=== PATIENT | female | born 1985 | race Caucasian/White ===

== ENCOUNTER 2017-09-04 07:04 | Emergency (ER) | payer OTHER ==
[~2017-09-04] VITALS: Ht 157.5 cm; Wt 52.2 kg
[2017-09-04] MEDS ORDERED: Prenatabs FA T1 EACH PO (07:42)
[2017-09-04 08:32] LABS: BASOPHILS ABSOLUTE AUTO 0.08 K/mm3 (0.00-0.23); BASOPHILS PERCENT AUTO 1 % (0-2); EOSINOPHILS ABSOLUTE AUTO 0.16 K/mm3 (0.00-0.68); EOSINOPHILS PERCENT AUTO 2 % (0-6); Hematocrit 39.3 % (33.0-51.0); Hemoglobin 13.5 g/dL (11.5-16.0); IMMATURE GRAN ABSOLUTE AUTO 0.01 K/mm3 (0.00-0.10); IMMATURE GRAN PERCENT AUTO 0 % (0-1); LYMPHOCYTES ABSOLUTE AUTO 1.71 K/mm3 (0.84-5.20); LYMPHOCYTES PERCENT AUTO 21 % (21-46); MONOCYTES PERCENT AUTO 5 % (4-13); Mean Corpuscular HGB 31.8 pg (26.0-34.0); Mean Corpuscular HGB Conc 34.4 g/dL (31.5-36.5); Mean Corpuscular Volume 93 fL (80-100); Mean Platelet Volume 8.6 fL (9.1-12.4); NEUTROPHILS ABSOLUTE AUTO 5.71 K/mm3 (1.96-9.15); NEUTROPHILS PERCENT AUTO 71 % (41-73); Platelet Count 296 K/mm3 (150-400); RDW Coefficient Variation 12.2 % (11.7-14.2); RDW Standard Deviation 41.7 fL (35.1-46.3); Red Blood Cell Count 4.25 M/mm3 (3.80-5.20); White Blood Cell Count 8.07 K/mm3 (4.00-11.30)
[2017-09-04 09:00] LABS: Alanine Aminotransfer (ALT/SGP 18 U/L (12-78); Albumin, Blood 4.4 g/dL (3.4-5.0); Albumin/Globulin Ratio 1.2 (0.8-1.8); Alk Phos 48 U/L (50-136); Anion Gap 4 mmol/L (6-16); Aspartate Aminotrans (AST/SGOT 15 U/L (12-37); Bilirubin, Total 0.7 mg/dL (0.1-1.0); Blood Urea Nitrogen 6 mg/dL (8-24); Bun/Creatinine Ratio 12.6 (12.0-20.0); CO2, Blood 25 mmol/L (21-32); Calcium, Blood 8.4 mg/dL (8.5-10.1); Chloride, Blood 107 mmol/L (98-108); Creatinine, Blood 0.48 mg/dL (0.40-1.00); Globulin, Blood 3.6 g/dL (2.2-4.0); Glomerular Filtration Rate >60 (60-); Glucose, Blood 92 mg/dL (70-99); Potassium, Blood 3.8 mmol/L (3.5-5.5); Sodium, Blood 136 mmol/L (136-145)
[2017-09-04] MEDS ORDERED: Zofran Odt4 MG SL (09:31)
== END 2017-09-04 09:44 | disposition home or self-care (01) ==
LOC: ER 07:04
PROVIDERS: Emergency Medicine
DX: O21.9 Vomiting of pregnancy, unspecified (principal); O99.331 Smoking (tobacco) complicating pregnancy, first trimester; F17.200 Nicotine dependence, unspecified, uncomplicated; Z91.040 Latex allergy status; Z79.899 Other long term (current) drug therapy; Z3A.01 Less than 8 weeks gestation of pregnancy
CPT/HCPCS: 80053; 84702; 85025; 86900; 86901; 96361; 96374; 99283; J2405; J7030

== ENCOUNTER 2017-09-05 03:54 | Emergency (ER) | payer OTHER ==
[~2017-09-05] VITALS: Ht 157.5 cm; Wt 52.2 kg
[~2017-09-05 03:54] MED LIST: Prenatabs FA T1 EACH PO; Zofran Odt4 MG SL
[2017-09-05 04:17] LABS: BASOPHILS ABSOLUTE AUTO 0.05 K/mm3 (0.00-0.23); BASOPHILS PERCENT AUTO 1 % (0-2); EOSINOPHILS ABSOLUTE AUTO 0.07 K/mm3 (0.00-0.68); EOSINOPHILS PERCENT AUTO 1 % (0-6); Hematocrit 35.1 % (33.0-51.0); Hemoglobin 11.8 g/dL (11.5-16.0); IMMATURE GRAN ABSOLUTE AUTO 0.01 K/mm3 (0.00-0.10); IMMATURE GRAN PERCENT AUTO 0 % (0-1); LYMPHOCYTES ABSOLUTE AUTO 1.28 K/mm3 (0.84-5.20); LYMPHOCYTES PERCENT AUTO 17 % (21-46); MONOCYTES ABSOLUTE AUTO 0.45 K/mm3 (0.16-1.47); MONOCYTES PERCENT AUTO 6 % (4-13); Mean Corpuscular HGB 31.3 pg (26.0-34.0); Mean Corpuscular HGB Conc 33.6 g/dL (31.5-36.5); Mean Corpuscular Volume 93 fL (80-100); Mean Platelet Volume 8.7 fL (9.1-12.4); NEUTROPHILS ABSOLUTE AUTO 5.73 K/mm3 (1.96-9.15); NEUTROPHILS PERCENT AUTO 76 % (41-73); Platelet Count 259 K/mm3 (150-400); RDW Coefficient Variation 11.9 % (11.7-14.2); RDW Standard Deviation 41.1 fL (35.1-46.3); Red Blood Cell Count 3.77 M/mm3 (3.80-5.20); White Blood Cell Count 7.59 K/mm3 (4.00-11.30)
[2017-09-05 04:40] LABS: Alanine Aminotransfer (ALT/SGP 16 U/L (12-78); Albumin, Blood 3.7 g/dL (3.4-5.0); Albumin/Globulin Ratio 1.2 (0.8-1.8); Alk Phos 38 U/L (50-136); Anion Gap 10 mmol/L (6-16); Aspartate Aminotrans (AST/SGOT 15 U/L (12-37); Bilirubin, Total 1.2 mg/dL (0.1-1.0); Blood Urea Nitrogen 5 mg/dL (8-24); Bun/Creatinine Ratio 10.4 (12.0-20.0); CO2, Blood 17 mmol/L (21-32); Calcium, Blood 7.6 mg/dL (8.5-10.1); Chloride, Blood 112 mmol/L (98-108); Creatinine, Blood 0.48 mg/dL (0.40-1.00); Glomerular Filtration Rate >60 (60-); Glucose, Blood 79 mg/dL (70-99); Potassium, Blood 3.7 mmol/L (3.5-5.5); Sodium, Blood 139 mmol/L (136-145); Total Protein, Blood 6.7 g/dL (6.4-8.2)
== END 2017-09-05 07:13 | disposition home or self-care (01) ==
LOC: ER 03:54
PROVIDERS: Emergency Medicine
DX: O21.9 Vomiting of pregnancy, unspecified (principal); Z91.040 Latex allergy status; Z79.899 Other long term (current) drug therapy; Z87.891 Personal history of nicotine dependence; Z3A.01 Less than 8 weeks gestation of pregnancy
CPT/HCPCS: 80053; 83690; 85025; 96361; 96372; 96374; 99283; J2405; J2550; J7030

== ENCOUNTER 2017-10-17 08:07 | Emergency (ER) | payer OTHER ==
[~2017-10-17] VITALS: Ht 157.5 cm; Wt 54.0 kg
== END 2017-10-17 09:23 | disposition home or self-care (01) ==
LOC: ER 08:07
DX: O99.611 Diseases of the digestive system complicating pregnancy, first trimester (principal); K31.89 Other diseases of stomach and duodenum; O21.9 Vomiting of pregnancy, unspecified; Z3A.14 14 weeks gestation of pregnancy; Z91.040 Latex allergy status; Z79.899 Other long term (current) drug therapy
CPT/HCPCS: 36415; 99283

== ENCOUNTER 2021-09-18 20:57 | Emergency (ER) | payer OTHER ==
[~2021-09-18] VITALS: Ht 157.5 cm; Wt 65.3 kg
[2021-09-18 21:49] LABS: Source, Urine Clean Catch
[2021-09-18 21:56] LABS: Bilirubin, Urine Neg (Neg); Blood, Urine 5+ (Neg); Glucose Qualitative, Urine Neg (Neg); Ketones, Urine Neg (Neg); Leukocyte Esterase, Urine 2+ (Neg); Nitrite, Urine Neg (Neg); Protein, Urine 2+ (Neg); Urobilinogen, Urine NORM (Normal)
[2021-09-18 22:06] LABS: Appearance, Urine Hazy (Clear); Color, Urine Yellow (P-Yellow)
[2021-09-18 22:08] LABS: Amorphous Light (0-Heavy); Bacteria Few /hpf; Mucus Light (0-Heavy); Red Blood Cells, Urine TNTC /hpf (0-2); Squamous Epithelial Cells Few /hpf (Few)
== END 2021-09-18 22:50 | disposition home or self-care (01) ==
LOC: ER 20:57
PROVIDERS: Physician Assistant
DX: O20.9 Hemorrhage in early pregnancy, unspecified (principal); Z91.040 Latex allergy status; Z3A.01 Less than 8 weeks gestation of pregnancy
CPT/HCPCS: 36415; 76801; 76817; 81001; 84702; 86900; 86901; 87086; 99284-25

== ENCOUNTER → 2022-04-20 | Outpatient (CLI) | payer OTHER ==
[2022-04-20 19:37] LABS: BASOPHILS ABSOLUTE AUTO 0.12 K/mm3 (0.00-0.23); BASOPHILS PERCENT AUTO 1 % (0-2); EOSINOPHILS ABSOLUTE AUTO 0.51 K/mm3 (0.00-0.68); EOSINOPHILS PERCENT AUTO 6 % (0-6); Hematocrit 39.1 % (33.0-51.0); Hemoglobin 12.7 g/dL (11.5-16.0); IMMATURE GRAN ABSOLUTE AUTO 0.02 K/mm3 (0.00-0.10); IMMATURE GRAN PERCENT AUTO 0 % (0-1); LYMPHOCYTES ABSOLUTE AUTO 2.52 K/mm3 (0.84-5.20); LYMPHOCYTES PERCENT AUTO 30 % (21-46); MONOCYTES PERCENT AUTO 8 % (4-13); Mean Corpuscular HGB 30.7 pg (26.0-34.0); Mean Corpuscular HGB Conc 32.5 g/dL (31.5-36.5); Mean Corpuscular Volume 94 fL (80-100); Mean Platelet Volume 9.3 fL (9.1-12.4); NEUTROPHILS ABSOLUTE AUTO 4.49 K/mm3 (1.96-9.15); NEUTROPHILS PERCENT AUTO 54 % (41-73); Platelet Count 339 K/mm3 (150-400); RDW Coefficient Variation 13.2 % (11.7-14.2); RDW Standard Deviation 45.5 fL (35.1-46.3); Red Blood Cell Count 4.14 M/mm3 (3.80-5.20); White Blood Cell Count 8.36 K/mm3 (4.00-11.30)
[2022-04-20 19:49] LABS: Albumin, Blood 4.3 g/dL (3.4-5.0); Albumin/Globulin Ratio 1.3 (0.8-1.8); Bilirubin, Total 0.4 mg/dL (0.1-1.0); Bun/Creatinine Ratio 16.9 (12.0-20.0); Calcium, Blood 8.8 mg/dL (8.5-10.1); Creatinine, Blood 0.71 mg/dL (0.40-1.00); Globulin, Blood 3.4 g/dL (2.2-4.0); Potassium, Blood 4.2 mmol/L (3.5-5.5); Total Protein, Blood 7.7 g/dL (6.4-8.2)
== END ==
LOC: LAB 11:35 → LAB SHORT 11:35
PROVIDERS: Physician Assistant
DX: R11.2 Nausea with vomiting, unspecified (principal)
CPT/HCPCS: 80053; 85025

== ENCOUNTER → 2022-04-26 | Outpatient (CLI) | payer OTHER | END | disposition home or self-care (01) | LOC: LAB SHORT 10:30 → LAB 10:30 | DX: N39.0 Urinary tract infection, site not specified (principal) | CPT/HCPCS: 87086 ==

== ENCOUNTER 2022-07-16 02:44 | Inpatient (IN) | payer OTHER ==
[~2022-07-16] VITALS: Ht 165.1 cm; Wt 72.1 kg
[2022-07-16] MEDS ORDERED: ESCI20 PO ×2 (02:52)
[2022-07-16] MEDS ORDERED: Budeprion Xl300 MG PO ×2 (02:52)
[2022-07-16] MEDS ORDERED: FAMO20 PO ×2 (02:53)
[2022-07-16] MEDS ORDERED: PRAZOSIN HCL1 M2 PO ×2 (02:53)
[2022-07-16 03:02] LABS: BASOPHILS ABSOLUTE AUTO 0.11 K/mm3 (0.00-0.23); BASOPHILS PERCENT AUTO 1 % (0-2); EOSINOPHILS ABSOLUTE AUTO 0.35 K/mm3 (0.00-0.68); EOSINOPHILS PERCENT AUTO 3 % (0-6); Hematocrit 37.3 % (33.0-51.0); Hemoglobin 13.1 g/dL (11.5-16.0); IMMATURE GRAN ABSOLUTE AUTO 0.06 K/mm3 (0.00-0.10); IMMATURE GRAN PERCENT AUTO 0 % (0-1); LYMPHOCYTES ABSOLUTE AUTO 2.82 K/mm3 (0.84-5.20); LYMPHOCYTES PERCENT AUTO 20 % (21-46); MONOCYTES ABSOLUTE AUTO 0.71 K/mm3 (0.16-1.47); MONOCYTES PERCENT AUTO 5 % (4-13); Mean Corpuscular HGB Conc 35.1 g/dL (31.5-36.5); Mean Corpuscular Volume 88 fL (80-100); Mean Platelet Volume 8.6 fL (9.1-12.4); NEUTROPHILS ABSOLUTE AUTO 9.96 K/mm3 (1.96-9.15); NEUTROPHILS PERCENT AUTO 71 % (41-73); Platelet Count 381 K/mm3 (150-400); RDW Coefficient Variation 12.4 % (11.7-14.2); RDW Standard Deviation 40.3 fL (35.1-46.3); Red Blood Cell Count 4.22 M/mm3 (3.80-5.20); White Blood Cell Count 14.01 K/mm3 (4.00-11.30)
[2022-07-16 03:36] LABS: Albumin/Globulin Ratio 1.1 (0.8-1.8); Bilirubin, Direct 0.1 mg/dL (0.0-0.3); Bilirubin, Indirect 0.5 mg/dL (0.1-0.7); Bilirubin, Total 0.6 mg/dL (0.1-1.0); Bun/Creatinine Ratio 11.4 (12.0-20.0); Creatinine, Blood 0.61 mg/dL (0.40-1.00); Globulin, Blood 3.8 g/dL (2.2-4.0); Magnesium, Blood 1.9 mg/dL (1.6-2.4); Potassium, Blood 3.3 mmol/L (3.5-5.5); Total Protein, Blood 7.8 g/dL (6.4-8.2)
[2022-07-16 04:07] LABS: Source, Urine Clean Catch
[2022-07-16 04:09] LABS: Bilirubin, Urine Neg (Neg); Blood, Urine 1+ (Neg); Glucose Qualitative, Urine 3+ (Neg); Ketones, Urine 4+ (Neg); Leukocyte Esterase, Urine 2+ (Neg); Nitrite, Urine Neg (Neg); Protein, Urine 1+ (Neg); Specific Gravity, Urine 1.015 (1.003-1.022); Urobilinogen, Urine NORM (Normal)
[2022-07-16 04:23] LABS: Appearance, Urine Hazy (Clear); Color, Urine Yellow (P-Yellow)
[2022-07-16 04:24] LABS: Bacteria Mod /hpf; Red Blood Cells, Urine 0-2 /hpf (0-2); Squamous Epithelial Cells Mod /hpf (Few)
[2022-07-16 04:25] LABS: U Amphetamine Screen Not Detected; U Barbituate Screen Not Detected; U Benzodiazapine Screen Not Detected; U Buprenorphine Screen Not Detected; U Cannabinoids Screen DETECTED; U Cocaine Screen Not Detected; U Methadone Screen Not Detected; U Methamphetamine Screen Not Detected; U Opiates Screen Not Detected; U Oxycodone Screen Not Detected; U Phencyclidine Screen Not Detected; U Propoxyphene Screen Not Detected
[2022-07-16] MEDS ORDERED: METO10 PO ×2 (06:04)
[2022-07-16] MEDS ORDERED: PROM12.5S PR ×2 (06:04)
--- NOTE | 2022-07-16 14:58 | NUR ---
C/O Nausea/Vomiting and abd pain Spoke with Dr. Foster. T.O. for 8mg zofran IV q8h PRN (use first), 25mg phenergan IV q6h PRN (use second), and 10mg reglan IV q8h PRN (use last). Additional orders are 25mg benadryl IV q6h PRN, 100mg thiamine IV TID, 25mg B6 PO q8h, and 100mg unisom PO BID. Unisom not available from pharmacy and neither is a conversion for this medication. Dr. Foster notified, no new order.
--- NOTE | 2022-07-16 18:47 | NUR ---
ADMIT FROM ED- PT ARRIVED FROM ED ON GURNEY ALERT AND ORIENTEDX4. PT IS EXPERIENCING NAUSEA AND VOMITING AND UNABLE TO KEEP ANY FLUIDS DOWN. ANTIEMETICS ADMINISTED PER MD ORDER. PT ANXIETY AND NAUSEA SEEMS TO BE RELIEVED BY TAKING A SHOWER. PT UP WITH NURSE SUPERVISION AND IS AWARE OF LIMITATIONS. BED IS IN LOWEST POSITION WITH CALL LIGHT WITHIN REACH
--- NOTE | 2022-07-17 04:43 | NUR ---
SHIFT NOTE PATIENT REMAINES ALERT AND ORIENTED X4, ANXIOSE AND SOMEWHAT UNCOOPERATIVE WITH CARE. NEEDS FIRM REMINDERS TO KEEP IV FLUIDS GOING AND TO TAKE MINIMAL SHOWERS THE PROVIDER HAS RECOMENDED. PRN ANTIEMETICS ADMINISTERED THROUGHOUT THE NIGHT, IV D5 1/2 NS INFUSING. N/V PERSISTING FOR MOST OF THE NIGHT. IV DISLODGED FROM MOISTURE AND REPLACED BY UNIT CHARGE. VSS. WILL CONT TO MONITOR.
[2022-07-17 04:48] LABS: BASOPHILS ABSOLUTE AUTO 0.03 K/mm3 (0.00-0.23); BASOPHILS PERCENT AUTO 0 % (0-2); EOSINOPHILS ABSOLUTE AUTO 0.01 K/mm3 (0.00-0.68); EOSINOPHILS PERCENT AUTO 0 % (0-6); Hematocrit 35.2 % (33.0-51.0); Hemoglobin 12.2 g/dL (11.5-16.0); IMMATURE GRAN ABSOLUTE AUTO 0.06 K/mm3 (0.00-0.10); IMMATURE GRAN PERCENT AUTO 0 % (0-1); LYMPHOCYTES ABSOLUTE AUTO 1.74 K/mm3 (0.84-5.20); LYMPHOCYTES PERCENT AUTO 11 % (21-46); MONOCYTES ABSOLUTE AUTO 1.24 K/mm3 (0.16-1.47); MONOCYTES PERCENT AUTO 8 % (4-13); Mean Corpuscular HGB 31.1 pg (26.0-34.0); Mean Corpuscular HGB Conc 34.7 g/dL (31.5-36.5); Mean Corpuscular Volume 90 fL (80-100); Mean Platelet Volume 8.8 fL (9.1-12.4); NEUTROPHILS ABSOLUTE AUTO 12.83 K/mm3 (1.96-9.15); NEUTROPHILS PERCENT AUTO 81 % (41-73); Platelet Count 356 K/mm3 (150-400); RDW Coefficient Variation 12.8 % (11.7-14.2); RDW Standard Deviation 41.5 fL (35.1-46.3); Red Blood Cell Count 3.92 M/mm3 (3.80-5.20); White Blood Cell Count 15.91 K/mm3 (4.00-11.30)
[2022-07-17 05:07] LABS: Albumin/Globulin Ratio 1.2 (0.8-1.8); Bun/Creatinine Ratio 8.2 (12.0-20.0); Calcium, Blood 8.6 mg/dL (8.5-10.1); Creatinine, Blood 0.61 mg/dL (0.40-1.00); Globulin, Blood 3.4 g/dL (2.2-4.0); Magnesium, Blood 2.2 mg/dL (1.6-2.4); Total Protein, Blood 7.4 g/dL (6.4-8.2)
[2022-07-17 18:41] LABS: Albumin, Blood 3.7 g/dL (3.4-5.0); Albumin/Globulin Ratio 1.2 (0.8-1.8); Bilirubin, Total 0.6 mg/dL (0.1-1.0); Bun/Creatinine Ratio 6.4 (12.0-20.0); Calcium, Blood 8.1 mg/dL (8.5-10.1); Creatinine, Blood 0.62 mg/dL (0.40-1.00); Globulin, Blood 3.1 g/dL (2.2-4.0); Potassium, Blood 3.4 mmol/L (3.5-5.5); Total Protein, Blood 6.8 g/dL (6.4-8.2)
--- NOTE | 2022-07-17 19:33 | NUR ---
SUMMARY- PT A/O, INDEPENDANT IN ROOM. FREQ COMPLAINTS OF NAUSEA THAT COME OVER HER IN WAVES. TAKING 3 DIFFERENT ANTIEMETIC, ALTERNATING. ALSO HAVING INTERMITTANT HEART BURN, SEVERE EPSTRIC BURNING. NOTIFIED DR DINH, STARTED ON PROTONIX IV DAILY AND MAALOX PLUS Q4 PRN. FENT. STARTED FOR DISCOMFORT. PT HAD PERIODS OF REPREIVE AND WAVES OF INTENSE ANXIETY ACCOMPANYING N/V. PT SPENT MOST OF HER DAY POSITION IN THE SHOWER. K+=3.O THIS AM, IV 40MEQ REPLACEMENT OVER 4 HOURS, KCL 1745 =3.4. ORDER FOR 2ND BAG OF 40MEQ. REPORT TO NOC RN. TOLERATED A FEW BITES OF CRACKER AND PART OF POPCYCLE, SIPPING ICE WATER AN SPRITS, OTHERWISE NOT TOLERATING PO.
--- NOTE | 2022-07-18 05:54 | NUR ---
SHIFT NOTE PATIENT DID NOT SLEEP THIS SHIFT. SPENT MOST THE NIGHT IN THE SHOWE, HOWEVER WE WERE ABLE TO KEEP IV FLUIDS INFUSING WITH POWERGLIDE. N/V TREATED WILL ALL PRNS WITH LITTLE RESULTS. PRNS GAVE SOME RELIEF WITH ABD PAIN. PATIENT WAS ANXIOUS, BUT MORE COOPERATIVE WI CARE. WILL CONT TO MONITOR.
[2022-07-18 07:51] LABS: BASOPHILS ABSOLUTE AUTO 0.05 K/mm3 (0.00-0.23); BASOPHILS PERCENT AUTO 0 % (0-2); EOSINOPHILS ABSOLUTE AUTO 0.02 K/mm3 (0.00-0.68); EOSINOPHILS PERCENT AUTO 0 % (0-6); Hematocrit 31.1 % (33.0-51.0); Hemoglobin 10.9 g/dL (11.5-16.0); IMMATURE GRAN ABSOLUTE AUTO 0.04 K/mm3 (0.00-0.10); IMMATURE GRAN PERCENT AUTO 0 % (0-1); LYMPHOCYTES ABSOLUTE AUTO 2.35 K/mm3 (0.84-5.20); LYMPHOCYTES PERCENT AUTO 19 % (21-46); MONOCYTES ABSOLUTE AUTO 1.08 K/mm3 (0.16-1.47); MONOCYTES PERCENT AUTO 9 % (4-13); Mean Corpuscular HGB 31.5 pg (26.0-34.0); Mean Corpuscular Volume 90 fL (80-100); Mean Platelet Volume 8.8 fL (9.1-12.4); NEUTROPHILS ABSOLUTE AUTO 9.06 K/mm3 (1.96-9.15); NEUTROPHILS PERCENT AUTO 72 % (41-73); Platelet Count 342 K/mm3 (150-400); RDW Coefficient Variation 12.5 % (11.7-14.2); RDW Standard Deviation 41.2 fL (35.1-46.3); Red Blood Cell Count 3.46 M/mm3 (3.80-5.20)
[2022-07-18 08:03] LABS: Albumin, Blood 3.9 g/dL (3.4-5.0); Albumin/Globulin Ratio 1.3 (0.8-1.8); Bilirubin, Total 0.8 mg/dL (0.1-1.0); Bun/Creatinine Ratio 5.5 (12.0-20.0); Calcium, Blood 7.7 mg/dL (8.5-10.1); Creatinine, Blood 0.55 mg/dL (0.40-1.00); Globulin, Blood 3.1 g/dL (2.2-4.0)
[2022-07-18 16:59] LABS: Albumin, Blood 3.6 g/dL (3.4-5.0); Albumin/Globulin Ratio 1.2 (0.8-1.8); Bilirubin, Total 0.7 mg/dL (0.1-1.0); Bun/Creatinine Ratio 3.7 (12.0-20.0); Calcium, Blood 7.5 mg/dL (8.5-10.1); Creatinine, Blood 0.55 mg/dL (0.40-1.00); Potassium, Blood 3.2 mmol/L (3.5-5.5); Total Protein, Blood 6.6 g/dL (6.4-8.2)
--- NOTE | 2022-07-18 19:37 | NUR ---
SUMM- PT A/O X4, INDEPENDANT IN ROOM. BOWEL TONES ACTIVE. STATES NO BM SINCE DIARRHEA SHE HAD 07/15. PT EXPERIENCING SEVERE NAUSEA/VOMITING IN WAVES, COMES OVER HER STRONG. TAKING 4 DIFFERENT ANTIEMETICS ALTERNATING, WITH PARTIAL RELEIF OF NAUSEA FOR SHORT PERIODS. ALSO DESCRIBES SEVERE BURNING EPIGASTRIC REGION, MITTAL WHEN SHE HAS ORAL INTAKE. ORDER FOR MAGIC WASH (LIDO/BENADRYL/MAALOX) HELPFUL. FENT FOR EPIGASTRIC PAIN AND BACK PAIN FROM FREQ WRETCHING. PT HAS A POWERGLIDE FOR IV MAINT, HAD KCL REPLACEMENT. PT FREQ ASKS FOR IV WRAPPED SO SHE CAN HANG OUT IN THE SHOWER. SPENDS 50% OF THE DAY IN THE SHOWER. BRIEF PERIODS OF REST, AWAKENS WITH NAUSEA. HAS ONLY TOLERATED SIPS OF SUPP SHAKE, A BITE OR 2 OF JELLO AND SIPS OF ICE WATER AND SPRITS. CALLED DR LAWRENCE FOR INCREASE IN PAIN MED AND MAGIC WASH THIS PM PT BESIDE HERSELF UNABLE TO COPE WITH THE NAUSEA AND EPIGASTRIC PAIN. SEEMS TO BE HAVING MORE REPRIEVE THIS PM WITH MED CHANGES. REPORTED TO NOC RN. WILL F/U WITH LABS FOR KCL 1 HOUR AFTER KCL COMPLETE.
[2022-07-18] MEDS ORDERED: BUSP10 PO ×2 (20:16)
[2022-07-18] MEDS ORDERED: CYCL10 PO ×2 (20:17)
[2022-07-18] MEDS ORDERED: OMEP20ER PO ×2 (20:18)
[2022-07-18] MEDS ORDERED: Tessalon200 MG PO ×2 (20:19)
[2022-07-19 00:49] LABS: Albumin, Blood 3.7 g/dL (3.4-5.0); Albumin/Globulin Ratio 1.2 (0.8-1.8); Bilirubin, Total 0.7 mg/dL (0.1-1.0); Bun/Creatinine Ratio 1.6 (12.0-20.0); Calcium, Blood 7.8 mg/dL (8.5-10.1); Creatinine, Blood 0.62 mg/dL (0.40-1.00); Globulin, Blood 3.2 g/dL (2.2-4.0); Potassium, Blood 3.5 mmol/L (3.5-5.5); Total Protein, Blood 6.9 g/dL (6.4-8.2)
--- NOTE | 2022-07-19 05:16 | NUR ---
BENJAMIN: PATIENT NAUSEATED AND IN PAIN OVERNIGHT. MEDS AROUND THE CLOCK THROUGHOUT SHIFT PER EMAR. PATIENT TOOK ABOUT 7 SHOWERS TO HELP WITH THE PAIN/NAUSEA. POWERGLIDE DRESSING CHANGED THIS MORNING. D5NS RUNNING AT 200ML/HR. POTASSIUM REPLACED START OF SHIFT AND RECHECK WAS 3.5. MINIMAL EMESIS BUT PATIENT DID HAVE FREQUENT EPISODES OF DRY HEAVING. TOLERATING SMALL AMOUNT OF ICE WATER.
--- NOTE | 2022-07-19 19:01 | NUR ---
SHIFT SUMMARY PT A&OX4. PT CONTINUED TO HAVE N/V THROUGHOUT DAY. MEDICATED PER EMAR WITH SOME RELIEF FOR SHORT PERIODS OF TIME. HEAT PAD AND SHOWER USED FOR PAIN AND NAUSEA RELIEF WELL. INDEPENDENT IN ROOM. PT UNABLE TO TOLERATE ANY FOODS. ABLE TO TOLERATE SOME SIPS OF WATER. BED IN LOWEST POSITION AND CALL LIGHT IN REACH. REPORT GIVEN TO CRAFT WORKER NURSE.
--- NOTE | 2022-07-20 04:31 | NUR ---
SUMMARY: PATIENT NAUSEOUS AND IN PAIN OVERNIGHT. FLUIDS RUNNING AT 200ML/HR. ANTIEMETICS AND PAIN MEDS GIVEN PER EMAR. MINIMAL EMESIS OVERNIGHT. PATIENT ONLY TOLERATING SMALL SIPS OF ICE WATER. PATIENT TOOK SHOWERS OVERNIGHT. VSS. AOX4 AMBULATING INDEPENDENTLY IN ROOM.
[2022-07-20 05:41] LABS: Bun/Creatinine Ratio 3.4 (12.0-20.0); Creatinine, Blood 0.58 mg/dL (0.40-1.00); Potassium, Blood 2.9 mmol/L (3.5-5.5)
--- NOTE | 2022-07-20 09:58 | NUR ---
CALLED OBGYN OFFICE, GAVE CRITICAL VALUE UPDATE TO PHONE RECEPT TO UPDATE WILL CONTINUE TO MONITOR.
--- NOTE | 2022-07-20 17:25 | NUR ---
SHIFT SUMMARY- PT COMPLIANT OF PAIN THROUGHOUT SHIFT. LOCATION BACK AND STOMACHE. MEDICATED PER EMAR. N/V THROUGHOUT WHOLE SHIFT, MOMENTS OF RELIEF HERE AND THERE. PT ABLE TO EAT 3 BITES OF PUDDING BUT SOOM AFTER VOMITED. PT STATED SHE DID FEEL BETTER THAN YESTERDAY BUT IS STILL VOMITING. POWERGLIDE INTACT AND RUNNING WELL. WILL CONTINUE TO MONITOR. CALL LIGHT IN REACH.
--- NOTE | 2022-07-20 18:28 | NUR ---
SHIFT SUMMARY RESUMED CARE OF PT AT 1730. SINCE THEN SHE HAS C/O N/V AND MEDICATED PER THE EMAR. SHE IS AOX4 AND CAN MAKE HER NEEDS KNOWN. SHE IS INDEPENDENT TO THE BATHROOM. SHE STATED SHE HAS BEEN HAVING A "BETTER DAY". WILL REPORT TO ONCOMING NURSE.
--- NOTE | 2022-07-21 04:09 | NUR ---
SUMMARY: PATIENT NAUSEOUS AND IN PAIN MOST OF NIGHT. SHE DID SLEEP MORE TONIGHT THAN LAST NIGHT. FLUIDS RUNNING AT 200ML/HR. ANTIEMETICS AND PAIN MEDS GIVEN PER EMAR. FEW EPISODES OF EMESIS OVERNIGHT. PATIENT ONLY TOLERATING SMALL SIPS OF ICE WATER. PATIENT TOOK A FEW SHOWERS OVERNIGHT. VSS. AOX4 AMBULATING INDEPENDENTLY IN ROOM. ATTEMPTED APPLE JUICE BUT PATIENT THREW UP SHORTLY AFTER TAKING A FEW SIPS.
[2022-07-21 09:35] LABS: Hematocrit 31.2 % (33.0-51.0); Mean Corpuscular HGB Conc 35.3 g/dL (31.5-36.5); Mean Corpuscular Volume 91 fL (80-100); Mean Platelet Volume 8.4 fL (9.1-12.4); Platelet Count 294 K/mm3 (150-400); RDW Coefficient Variation 12.8 % (11.7-14.2); RDW Standard Deviation 41.3 fL (35.1-46.3); Red Blood Cell Count 3.44 M/mm3 (3.80-5.20); White Blood Cell Count 9.37 K/mm3 (4.00-11.30)
[2022-07-21 10:07] LABS: Bun/Creatinine Ratio 4.9 (12.0-20.0); Calcium, Blood 7.9 mg/dL (8.5-10.1); Creatinine, Blood 0.62 mg/dL (0.40-1.00); Potassium, Blood 2.7 mmol/L (3.5-5.5)
--- NOTE | 2022-07-21 17:25 | NUR ---
SHIFT SUMMARY PT AOX4, C/O N/V/P T/O THE SHIFT. SHE WAS MEDICATED PER THE EMAR. HER PG DRESSING WAS CHANGED THIS SHIFT. HER AND SONS VISITED AND BROUGHT HER A BURGER WHICH SHE VOMITTED UP. WE DISCUSSED EASING INTO EATING SOLIDS AGAIN. SHE TOOK FREQUENT SHOWERS THIS SHIFT WHICH SHE STATES PROVIDES RELIEF. REDIRECTION ALSO HELPS AT TIMES WHEN SHE BECOMES ANXIOUS. SHE IS CURRENTLY RESTING AND WATCHING TELEVISION. WILL REPORT TO ONCOMING NURSE.
--- NOTE | 2022-07-22 07:21 | NUR ---
BOTANY TEACHER SUMMARY: A&Ox4. PLEASANT AND COOPERATIVE WITH CARE. CALLS APPROPRIATELY AND IS ABLE TO COMMUNICATE NEEDS EFFECTIVELY. PRN ANTIEMETICS ADMINISTERED FREQUENTLY THROUGHOUT THE NIGHT AND WAS FINALLY ABLE TO GET NAUSEA AND VOMITING UNER CONTROL AROUND MIDNIGHT. THIS MORNING SHE STATES SHE IS FEELING GREAT AND HOPING TO GO HOME; EVEN ASKED TO HAVE OATMEAL AND COFFEE ORDERED FOR BREAKFAST FOR HER. DISCUSSED IMPORTANCE OF GOING SLOW AND STARTING WITH A BLAND DIET. LABS ORDERED FOR 911. REPORT TO ONCMAHESH GILL.
[2022-07-22 09:22] LABS: Hematocrit 33.9 % (33.0-51.0); Hemoglobin 11.9 g/dL (11.5-16.0); Mean Corpuscular HGB 31.7 pg (26.0-34.0); Mean Corpuscular HGB Conc 35.1 g/dL (31.5-36.5); Mean Corpuscular Volume 90 fL (80-100); Mean Platelet Volume 8.5 fL (9.1-12.4); Platelet Count 364 K/mm3 (150-400); RDW Coefficient Variation 12.9 % (11.7-14.2); RDW Standard Deviation 42.1 fL (35.1-46.3); Red Blood Cell Count 3.75 M/mm3 (3.80-5.20); White Blood Cell Count 9.98 K/mm3 (4.00-11.30)
[2022-07-22 09:30] LABS: Bun/Creatinine Ratio 4.8 (12.0-20.0); Calcium, Blood 8.7 mg/dL (8.5-10.1); Creatinine, Blood 0.63 mg/dL (0.40-1.00); Potassium, Blood 2.8 mmol/L (3.5-5.5)
--- NOTE | 2022-07-22 13:00 | NUR ---
CALLED DR. MCMAHON AT AROUND 1300 REGARDING PATIENT AM LAB VALUE OF K 2.8 AND PATIENT REQUESTING TO BE DISCHARGE. NO NEW ORDER RECEIVED AT THIS TIME. PER DR. MCMAHON HE IS PLANNING TO SEE PATIENT THIS PM AND CHAT WITH HER.
--- NOTE | 2022-07-22 18:41 | NUR ---
SHIFT SUMMARY: PATIENT A&OX4. ANXIOUS AT TIMES. CONSTANTLY ASKING FOR NAUSEA AND PAIN MEDS. THIS AM AFTER DRINKING A CUP OF COFFEE. PATIENT HAD EPISODE OF UNCONTROLLABLE N/V. PATIENT HAD EMESIS ABOUT 300 MLS THIS AM. IT HAS BEEN ONGOING ISSUE c BEING NAUSEOUS T/O THE DAY. PATIENT RECEIVED PRN NAUSEA MEDS SEE EMAR. REPORTS OF PAIN TO ESOPHAGUS AND BACK. MEDICATED MULTIPLE TIMES OF IV FENTANYL T/O SHIFT. RECEIVED THREE SHOWER TODAY. POWERGLIDE TO MARGARITA INFUSING D5W-NS AT 200 MLS/HR. VITAL SIGNS REVIEWED. AMBULATES TO BATHROOM AND BACK TO BED INDEPENDENTLY. CALL LIGHT IN REACH.
--- NOTE | 2022-07-23 06:03 | NUR ---
SHIFT SUMMARY NOC PT A/O X 4. PT HAD EPISODES OF N/V AT BEGINNING OF SHIFT AND WAS MEDICATED PER EMAR WHICH RELIEVED SYMPTOMS. PT WAS ABLE TO REST DURING SHIFT. PT POTASSIUM WAS 2.8 YESTERDAY AND GIVEN 40 MEQ IV, STILL WAITING ON AM LAB RESULTS. PT STILL HAS D5W IN NS INFUSING @ 200 MLS Q5H. PT WAS PLEASANT AND COOPERATIVE TO CARE. PT IS CURRENTLY RESTING WITH BED IN LOWEST POSITION, AND CALL LIGHT WITHIN REACH.
[2022-07-23 06:10] LABS: BASOPHILS ABSOLUTE AUTO 0.06 K/mm3 (0.00-0.23); BASOPHILS PERCENT AUTO 1 % (0-2); EOSINOPHILS ABSOLUTE AUTO 0.04 K/mm3 (0.00-0.68); EOSINOPHILS PERCENT AUTO 0 % (0-6); Hematocrit 25.3 % (33.0-51.0); Hemoglobin 8.9 g/dL (11.5-16.0); IMMATURE GRAN ABSOLUTE AUTO 0.09 K/mm3 (0.00-0.10); IMMATURE GRAN PERCENT AUTO 1 % (0-1); LYMPHOCYTES ABSOLUTE AUTO 2.79 K/mm3 (0.84-5.20); LYMPHOCYTES PERCENT AUTO 28 % (21-46); MONOCYTES ABSOLUTE AUTO 0.82 K/mm3 (0.16-1.47); MONOCYTES PERCENT AUTO 8 % (4-13); Mean Corpuscular HGB 31.3 pg (26.0-34.0); Mean Corpuscular HGB Conc 35.2 g/dL (31.5-36.5); Mean Corpuscular Volume 89 fL (80-100); Mean Platelet Volume 8.9 fL (9.1-12.4); NEUTROPHILS ABSOLUTE AUTO 6.27 K/mm3 (1.96-9.15); NEUTROPHILS PERCENT AUTO 62 % (41-73); Platelet Count 222 K/mm3 (150-400); RDW Coefficient Variation 12.9 % (11.7-14.2); RDW Standard Deviation 41.6 fL (35.1-46.3); Red Blood Cell Count 2.84 M/mm3 (3.80-5.20); White Blood Cell Count 10.07 K/mm3 (4.00-11.30)
[2022-07-23 06:36] LABS: Bun/Creatinine Ratio 3.6 (12.0-20.0); Creatinine, Blood 0.55 mg/dL (0.40-1.00); Potassium, Blood 2.3 mmol/L (3.5-5.5)
[2022-07-23 06:38] LABS: Calcium, Blood 6.4 mg/dL (8.5-10.1)
--- NOTE | 2022-07-23 09:57 | NUR ---
PATIENT IN DISTRESS, MOANING IN PAIN AND VOMITING YELLOW BILE AT 0700, MEDICATED PER EMAR WITH REGLAN, BENADRYL, COMPAZINE, PHENEGHRAN, AND FENTANYL. PATIENT RESTING NOW, PAIN DECREASED TO 7/10, NO DISTRESS PRESENTLY, CALL OUT FOR OBGYN TO CALL BACK TO REPORT K+, HGB, AND CONTNUED N/V PAIN, CALL LIGHT WITH IN REACH, MAKES NEEDS KNOWN, NO CONFUSION
[2022-07-23 12:25] LABS: Albumin, Blood 3.7 g/dL (3.4-5.0); Albumin/Globulin Ratio 1.3 (0.8-1.8); Bilirubin, Total 0.7 mg/dL (0.1-1.0); Bun/Creatinine Ratio 3.2 (12.0-20.0); Calcium, Blood 8.5 mg/dL (8.5-10.1); Creatinine, Blood 0.62 mg/dL (0.40-1.00); Globulin, Blood 2.9 g/dL (2.2-4.0); Potassium, Blood 3.1 mmol/L (3.5-5.5); Total Protein, Blood 6.6 g/dL (6.4-8.2)
--- NOTE | 2022-07-23 13:52 | NUR ---
DR RESENDIZ IN SEEING PATIENT NOW, PATIENT HAS BEEN FREE FROM DISTRESS, NV AND PAIN FOR TWO HOURS
[2022-07-23 14:18] LABS: BASOPHILS ABSOLUTE AUTO 0.01 K/mm3 (0.00-0.23); BASOPHILS PERCENT AUTO 0 % (0-2); EOSINOPHILS PERCENT AUTO 0 % (0-6); Hemoglobin 11.3 g/dL (11.5-16.0); IMMATURE GRAN ABSOLUTE AUTO 0.03 K/mm3 (0.00-0.10); IMMATURE GRAN PERCENT AUTO 0 % (0-1); LYMPHOCYTES ABSOLUTE AUTO 1.19 K/mm3 (0.84-5.20); LYMPHOCYTES PERCENT AUTO 10 % (21-46); MONOCYTES ABSOLUTE AUTO 0.57 K/mm3 (0.16-1.47); MONOCYTES PERCENT AUTO 5 % (4-13); Mean Corpuscular HGB 31.5 pg (26.0-34.0); Mean Corpuscular HGB Conc 35.3 g/dL (31.5-36.5); Mean Corpuscular Volume 89 fL (80-100); Mean Platelet Volume 8.3 fL (9.1-12.4); NEUTROPHILS ABSOLUTE AUTO 9.64 K/mm3 (1.96-9.15); NEUTROPHILS PERCENT AUTO 84 % (41-73); Platelet Count 341 K/mm3 (150-400); RDW Coefficient Variation 12.7 % (11.7-14.2); RDW Standard Deviation 41.3 fL (35.1-46.3); Red Blood Cell Count 3.59 M/mm3 (3.80-5.20); White Blood Cell Count 11.44 K/mm3 (4.00-11.30)
[2022-07-23] MEDS ORDERED: METO5A PO ×2 (15:01)
[2022-07-23] MEDS ORDERED: POTCHL20ER PO ×2 (15:03)
[2022-07-23] MEDS ORDERED: PROM25 PO ×2 (15:04)
[2022-07-23] MEDS ORDERED: PROM12.5S PR ×2 (15:06)
[2022-07-23] MEDS ORDERED: METPRE4 PO ×2 (15:35)
--- NOTE | 2022-07-23 16:12 | NUR ---
5470 PATIENT DISCHARGED HOME, POWER SHILOH STAY PER DR RESENDIZ, PATIENT STATED UNDERSTANDING OF FOLLOW UP NEEDS AT THE [facility], FOLLOW UP APPOINTMENTS, MEDICATIONS, AND DIET, PHARMACY ALSO PROVIDED MEDICATION EDUCATION FOR REGLAN AND PHENEGRAN. PATIENT LEFT THE FLOOR VIA W/C
== END 2022-07-23 16:25 | disposition home or self-care (01) | DRG 833 ==
LOC: ER 02:44 → MEDS 02:45
PROVIDERS: Obstetrics & Gynecology; Student in an Organized Health Care Education/Training Program; ADMIT Obstetrics & Gynecology
DX: O21.1 Hyperemesis gravidarum with metabolic disturbance (principal); Z3A.08 8 weeks gestation of pregnancy; N83.202 Unspecified ovarian cyst, left side
CPT/HCPCS: 36415; 76801; 76817; 80048; 80053; 80076; 81001; 82150; 82947; 83690; 83735; 84702; 85025; 85027; 87086; 93005; 93010; 96361; 96365; 96366; 96367; 96375; 96376; 99285-25; A9270; C1751; C9113; G0378; J0780; J1200; J1790; J2405; J2550; J2765; J2920; J2930; J3010; J3411; J3415; J3475; J3480; J7042; J7050

== ENCOUNTER 2022-07-25 11:28 | Emergency (ER) | payer OTHER ==
[~2022-07-25] VITALS: Ht 160 cm; Wt 68.0 kg
[~2022-07-25 11:28] MED LIST changes: +BUSP10 PO; +Budeprion Xl300 MG PO; +CYCL10 PO; +ESCI20 PO; +FAMO20 PO; +METO10 PO; +METO5A PO; +METPRE4 PO; +OMEP20ER PO; +POTCHL20ER PO; +PRAZOSIN HCL1 M2 PO; +PROM12.5S PR; +PROM25 PO; +Tessalon200 MG PO
[2022-07-25 12:11] LABS: BASOPHILS ABSOLUTE AUTO 0.06 K/mm3 (0.00-0.23); BASOPHILS PERCENT AUTO 1 % (0-2); EOSINOPHILS ABSOLUTE AUTO 0.14 K/mm3 (0.00-0.68); EOSINOPHILS PERCENT AUTO 1 % (0-6); Hematocrit 37.8 % (33.0-51.0); Hemoglobin 13.3 g/dL (11.5-16.0); IMMATURE GRAN ABSOLUTE AUTO 0.05 K/mm3 (0.00-0.10); IMMATURE GRAN PERCENT AUTO 0 % (0-1); LYMPHOCYTES PERCENT AUTO 18 % (21-46); MONOCYTES ABSOLUTE AUTO 1.14 K/mm3 (0.16-1.47); MONOCYTES PERCENT AUTO 9 % (4-13); Mean Corpuscular HGB 31.2 pg (26.0-34.0); Mean Corpuscular HGB Conc 35.2 g/dL (31.5-36.5); Mean Corpuscular Volume 89 fL (80-100); Mean Platelet Volume 8.3 fL (9.1-12.4); NEUTROPHILS ABSOLUTE AUTO 9.22 K/mm3 (1.96-9.15); NEUTROPHILS PERCENT AUTO 71 % (41-73); Platelet Count 430 K/mm3 (150-400); RDW Coefficient Variation 12.6 % (11.7-14.2); Red Blood Cell Count 4.26 M/mm3 (3.80-5.20); White Blood Cell Count 13.01 K/mm3 (4.00-11.30)
[2022-07-25 12:37] LABS: Albumin, Blood 4.3 g/dL (3.4-5.0); Albumin/Globulin Ratio 1.2 (0.8-1.8); Bilirubin, Total 0.9 mg/dL (0.1-1.0); Bun/Creatinine Ratio 9.6 (12.0-20.0); Calcium, Blood 9.5 mg/dL (8.5-10.1); Creatinine, Blood 0.63 mg/dL (0.40-1.00); Globulin, Blood 3.6 g/dL (2.2-4.0); Potassium, Blood 2.6 mmol/L (3.5-5.5); Total Protein, Blood 7.9 g/dL (6.4-8.2)
== END 2022-07-25 17:50 | disposition home or self-care (01) ==
LOC: ER 11:28
PROVIDERS: Student in an Organized Health Care Education/Training Program
DX: O21.0 Mild hyperemesis gravidarum (principal); O99.891 Other specified diseases and conditions complicating pregnancy; E87.6 Hypokalemia; E86.0 Dehydration; Z3A.08 8 weeks gestation of pregnancy; Z79.899 Other long term (current) drug therapy; Z91.040 Latex allergy status; Z87.891 Personal history of nicotine dependence
CPT/HCPCS: 36415; 80053; 85025; A9270; J2405; J2765; J3010; J3475; J3480; J7042; J7050; J7120

== ENCOUNTER 2022-07-26 07:30 | Emergency (ER) | payer OTHER ==
[~2022-07-26] VITALS: Ht 160 cm; Wt 68.0 kg
[2022-07-26 09:44] LABS: BASOPHILS ABSOLUTE AUTO 0.05 K/mm3 (0.00-0.23); BASOPHILS PERCENT AUTO 0 % (0-2); EOSINOPHILS ABSOLUTE AUTO 0.18 K/mm3 (0.00-0.68); EOSINOPHILS PERCENT AUTO 2 % (0-6); Hematocrit 33.4 % (33.0-51.0); Hemoglobin 11.9 g/dL (11.5-16.0); IMMATURE GRAN ABSOLUTE AUTO 0.04 K/mm3 (0.00-0.10); IMMATURE GRAN PERCENT AUTO 0 % (0-1); LYMPHOCYTES ABSOLUTE AUTO 1.74 K/mm3 (0.84-5.20); LYMPHOCYTES PERCENT AUTO 14 % (21-46); MONOCYTES ABSOLUTE AUTO 0.86 K/mm3 (0.16-1.47); MONOCYTES PERCENT AUTO 7 % (4-13); Mean Corpuscular HGB 31.4 pg (26.0-34.0); Mean Corpuscular HGB Conc 35.6 g/dL (31.5-36.5); Mean Corpuscular Volume 88 fL (80-100); Mean Platelet Volume 8.5 fL (9.1-12.4); NEUTROPHILS PERCENT AUTO 77 % (41-73); Platelet Count 383 K/mm3 (150-400); RDW Coefficient Variation 12.7 % (11.7-14.2); RDW Standard Deviation 41.1 fL (35.1-46.3); Red Blood Cell Count 3.79 M/mm3 (3.80-5.20); White Blood Cell Count 12.27 K/mm3 (4.00-11.30)
[2022-07-26 10:08] LABS: Albumin, Blood 3.8 g/dL (3.4-5.0); Albumin/Globulin Ratio 1.2 (0.8-1.8); Bilirubin, Total 0.7 mg/dL (0.1-1.0); Bun/Creatinine Ratio 8.9 (12.0-20.0); Calcium, Blood 8.8 mg/dL (8.5-10.1); Creatinine, Blood 0.56 mg/dL (0.40-1.00); Globulin, Blood 3.2 g/dL (2.2-4.0); Potassium, Blood 3.2 mmol/L (3.5-5.5)
[2022-07-27] MEDS ORDERED: PROC5 PO (08:41)
[2022-07-27] MEDS ORDERED: ASPI81CH PO (08:41)
[2022-07-27] MEDS ORDERED: PRENATAL TABLE1 EAC2 PO (08:41)
== END 2022-07-26 12:11 | disposition home or self-care (01) ==
LOC: ER 07:30
PROVIDERS: Emergency Medicine
DX: O21.0 Mild hyperemesis gravidarum (principal); Z91.040 Latex allergy status; Z3A.08 8 weeks gestation of pregnancy
CPT/HCPCS: 80053; 83690; 83735; 85025; J0780; J1200; J2405; J2550; J3010; J7042

== ENCOUNTER 2022-07-27 00:46 | Day surgery (SDC) | payer OTHER ==
[2022-07-27] MEDS ORDERED: ASPI81CH PO (08:41)
[2022-07-27] MEDS ORDERED: PRENATAL TABLE1 EAC2 PO (08:41)
[2022-07-27] MEDS ORDERED: PROC5 PO (08:41)
--- NOTE | 2022-07-27 09:30 | NUR ---
PT DECLINED SECOND BAG OF LR. PT STATES THIS MORNING IS THE BEST SHE HAS BEEN FEELING. SHE PLANS ON COMING BACK TO [facility] FOR FLUIDS AGAIN ON TUESDAY, WILL STOP AT FRONT TO SCHEDULE.
== END 2022-07-27 09:31 | disposition home or self-care (01) ==
LOC: ATC 00:46
DX: O21.1 Hyperemesis gravidarum with metabolic disturbance (principal)
CPT/HCPCS: J7120

== ENCOUNTER 2022-08-07 08:18 | Emergency (ER) | payer OTHER ==
[~2022-08-07] VITALS: Ht 160 cm; Wt 68.0 kg
[~2022-08-07 08:18] MED LIST changes: +ASPI81CH PO; +PRENATAL TABLE1 EAC2 PO; +PROC5 PO
[2022-08-07 09:33] LABS: BASOPHILS ABSOLUTE AUTO 0.06 K/mm3 (0.00-0.23); BASOPHILS PERCENT AUTO 1 % (0-2); EOSINOPHILS ABSOLUTE AUTO 0.14 K/mm3 (0.00-0.68); EOSINOPHILS PERCENT AUTO 2 % (0-6); Hematocrit 38.3 % (33.0-51.0); Hemoglobin 13.3 g/dL (11.5-16.0); IMMATURE GRAN ABSOLUTE AUTO 0.02 K/mm3 (0.00-0.10); IMMATURE GRAN PERCENT AUTO 0 % (0-1); LYMPHOCYTES ABSOLUTE AUTO 1.79 K/mm3 (0.84-5.20); LYMPHOCYTES PERCENT AUTO 22 % (21-46); MONOCYTES ABSOLUTE AUTO 0.53 K/mm3 (0.16-1.47); MONOCYTES PERCENT AUTO 7 % (4-13); Mean Corpuscular HGB 31.1 pg (26.0-34.0); Mean Corpuscular HGB Conc 34.7 g/dL (31.5-36.5); Mean Corpuscular Volume 90 fL (80-100); Mean Platelet Volume 8.3 fL (9.1-12.4); NEUTROPHILS ABSOLUTE AUTO 5.44 K/mm3 (1.96-9.15); NEUTROPHILS PERCENT AUTO 68 % (41-73); Platelet Count 440 K/mm3 (150-400); RDW Coefficient Variation 12.3 % (11.7-14.2); RDW Standard Deviation 40.1 fL (35.1-46.3); Red Blood Cell Count 4.27 M/mm3 (3.80-5.20); White Blood Cell Count 7.98 K/mm3 (4.00-11.30)
[2022-08-07 09:52] LABS: Albumin, Blood 4.5 g/dL (3.4-5.0); Albumin/Globulin Ratio 1.2 (0.8-1.8); Bilirubin, Total 0.7 mg/dL (0.1-1.0); Bun/Creatinine Ratio 11.5 (12.0-20.0); Calcium, Blood 9.6 mg/dL (8.5-10.1); Creatinine, Blood 0.52 mg/dL (0.40-1.00); Globulin, Blood 3.9 g/dL (2.2-4.0); Potassium, Blood 3.7 mmol/L (3.5-5.5); Total Protein, Blood 8.4 g/dL (6.4-8.2)
[2022-08-07 13:39] LABS: Source, Urine Clean Catch
[2022-08-07 13:49] LABS: Appearance, Urine Clear (Clear); Bilirubin, Urine Neg (Neg); Blood, Urine Neg (Neg); Color, Urine Yellow (P-Yellow); Glucose Qualitative, Urine Neg (Neg); Ketones, Urine 4+ (Neg); Leukocyte Esterase, Urine 1+ (Neg); Nitrite, Urine Neg (Neg); Protein, Urine Neg (Neg); Urobilinogen, Urine NORM (Normal)
[2022-08-07 13:58] LABS: Bacteria Many /hpf; Red Blood Cells, Urine 0-2 /hpf (0-2); Squamous Epithelial Cells Mod /hpf (Few)
[2022-08-07] MEDS ORDERED: CEPH500 PO (14:27)
[2022-08-07] MEDS ORDERED: PROM25 PO (14:27)
== END 2022-08-07 15:18 | disposition home or self-care (01) ==
LOC: ER 08:18
PROVIDERS: Student in an Organized Health Care Education/Training Program
DX: O23.41 Unspecified infection of urinary tract in pregnancy, first trimester (principal); N39.0 Urinary tract infection, site not specified; Z3A.11 11 weeks gestation of pregnancy; Z91.040 Latex allergy status; Z91.018 Allergy to other foods; Z79.899 Other long term (current) drug therapy; Z79.82 Long term (current) use of aspirin
CPT/HCPCS: 36415; 76815; 80053; 81001; 81025; 83690; 84702; 85025; 87086; J0696; J2405; J2550; J7030

== ENCOUNTER 2022-08-10 00:10 | Day surgery (SDC) | payer OTHER ==
[~2022-08-10 00:10] MED LIST changes: +CEPH500 PO
--- NOTE | 2022-08-10 09:13 | NUR ---
CALLED DR RESENDIZ'S OFFICE AND SPOKE WITH SHYAM LUIS FOR ORDER FOR NAUSEA. SEE NEW ORDER.
[2022-08-10] MEDS ORDERED: ONDANSETRON4 MG/2 ML IV (10:05)
== END 2022-08-10 09:50 | disposition home or self-care (01) ==
LOC: ATC 00:10
DX: O21.0 Mild hyperemesis gravidarum (principal); Z3A.00 Weeks of gestation of pregnancy not specified; Z79.899 Other long term (current) drug therapy; Z79.82 Long term (current) use of aspirin; Z87.891 Personal history of nicotine dependence; Z91.040 Latex allergy status; Z91.018 Allergy to other foods
CPT/HCPCS: 96361; 96374; J2405; J7120

== ENCOUNTER 2022-08-18 03:28 | Emergency (ER) | payer OTHER ==
[~2022-08-18] VITALS: Ht 160 cm; Wt 70.3 kg
[~2022-08-18 03:28] MED LIST changes: +ONDANSETRON4 MG/2 ML IV
== END 2022-08-18 06:42 | disposition home or self-care (01) ==
LOC: ER 03:28
DX: O21.9 Vomiting of pregnancy, unspecified (principal); Z3A.12 12 weeks gestation of pregnancy; Z91.040 Latex allergy status; Z91.018 Allergy to other foods; Z79.899 Other long term (current) drug therapy; Z79.82 Long term (current) use of aspirin; Z87.891 Personal history of nicotine dependence
CPT/HCPCS: 96361; 96374; 96375; 99284-25; J1790; J2765; J7042

== ENCOUNTER 2022-09-02 16:23 | Emergency (ER) | payer OTHER ==
[~2022-09-02] VITALS: Ht 160 cm; Wt 70.3 kg
== END 2022-09-02 18:16 | disposition left against medical advice (07) ==
LOC: ER 16:23
DX: R11.2 Nausea with vomiting, unspecified (principal); R51.9 Headache, unspecified; Z79.82 Long term (current) use of aspirin; Z79.899 Other long term (current) drug therapy; Z53.21 Procedure and treatment not carried out due to patient leaving prior to being seen by health care provider
CPT/HCPCS: 99281

== ENCOUNTER 2022-09-09 09:12 | Emergency (ER) | payer OTHER ==
[~2022-09-09] VITALS: Ht 157.5 cm; Wt 70.3 kg
[2022-09-09] MEDS ORDERED: ESCI10 PO (09:24)
[2022-09-09 10:18] LABS: BASOPHILS ABSOLUTE AUTO 0.05 K/mm3 (0.00-0.23); BASOPHILS PERCENT AUTO 1 % (0-2); EOSINOPHILS ABSOLUTE AUTO 0.12 K/mm3 (0.00-0.68); EOSINOPHILS PERCENT AUTO 2 % (0-6); Hematocrit 30.5 % (33.0-51.0); Hemoglobin 10.4 g/dL (11.5-16.0); IMMATURE GRAN ABSOLUTE AUTO 0.04 K/mm3 (0.00-0.10); IMMATURE GRAN PERCENT AUTO 1 % (0-1); LYMPHOCYTES ABSOLUTE AUTO 0.19 K/mm3 (0.84-5.20); LYMPHOCYTES PERCENT AUTO 3 % (21-46); MONOCYTES PERCENT AUTO 6 % (4-13); Mean Corpuscular HGB Conc 34.1 g/dL (31.5-36.5); Mean Corpuscular Volume 91 fL (80-100); Mean Platelet Volume 8.6 fL (9.1-12.4); NEUTROPHILS ABSOLUTE AUTO 6.38 K/mm3 (1.96-9.15); NEUTROPHILS PERCENT AUTO 89 % (41-73); Platelet Count 261 K/mm3 (150-400); RDW Coefficient Variation 12.6 % (11.7-14.2); RDW Standard Deviation 41.8 fL (35.1-46.3); Red Blood Cell Count 3.36 M/mm3 (3.80-5.20); White Blood Cell Count 7.18 K/mm3 (4.00-11.30)
[2022-09-09 10:33] LABS: Albumin, Blood 3.5 g/dL (3.4-5.0); Bilirubin, Total 0.2 mg/dL (0.1-1.0); Bun/Creatinine Ratio 14.2 (12.0-20.0); Calcium, Blood 8.1 mg/dL (8.5-10.1); Creatinine, Blood 0.42 mg/dL (0.40-1.00); Globulin, Blood 3.5 g/dL (2.2-4.0); Potassium, Blood 3.3 mmol/L (3.5-5.5)
== END 2022-09-09 11:24 | disposition home or self-care (01) ==
LOC: ER 09:12
PROVIDERS: Student in an Organized Health Care Education/Training Program
DX: O21.0 Mild hyperemesis gravidarum (principal); Z91.040 Latex allergy status; Z91.018 Allergy to other foods; Z79.899 Other long term (current) drug therapy; Z79.82 Long term (current) use of aspirin; Z87.891 Personal history of nicotine dependence; Z3A.14 14 weeks gestation of pregnancy
CPT/HCPCS: 36415; 80053; 85025; A9270; J2765; J7030

== ENCOUNTER 2022-11-03 06:22 | Emergency (ER) | payer OTHER ==
[~2022-11-03] VITALS: Ht 160 cm; Wt 74.8 kg
[~2022-11-03 06:22] MED LIST changes: +ESCI10 PO; +ONDA4ODT MM
[2022-11-03 07:26] LABS: Alanine Aminotransfer (ALT/SGP 13 U/L (12-78); Albumin, Blood 3.3 g/dL (3.4-5.0); Albumin/Globulin Ratio 0.9 (0.8-1.8); Alk Phos 60 U/L (50-136); Anion Gap 7 mmol/L (6-16); Aspartate Aminotrans (AST/SGOT 45 U/L (12-37); Bilirubin, Direct <0.1 mg/dL (0.0-0.3); Bilirubin, Indirect Unable to Calculate mg/dL (0.1-0.7); Bilirubin, Total 0.6 mg/dL (0.1-1.0); Blood Urea Nitrogen 7 mg/dL (8-24); Bun/Creatinine Ratio 15.5 (12.0-20.0); CO2, Blood 21 mmol/L (21-32); Calcium, Blood 8.2 mg/dL (8.5-10.1); Chloride, Blood 112 mmol/L (98-108); Creatinine, Blood 0.45 mg/dL (0.40-1.00); Globulin, Blood 3.5 g/dL (2.2-4.0); Glomerular Filtration Rate 128 (60-); Glucose, Blood 85 mg/dL (70-99); Sodium, Blood 140 mmol/L (136-145); Total Protein, Blood 6.8 g/dL (6.4-8.2)
[2022-11-03 08:33] VITALS: BP 102/59
[2022-11-03 10:01] LABS: BASOPHILS ABSOLUTE AUTO 0.07 K/mm3 (0.00-0.23); BASOPHILS PERCENT AUTO 1 % (0-2); EOSINOPHILS ABSOLUTE AUTO 0.27 K/mm3 (0.00-0.68); EOSINOPHILS PERCENT AUTO 4 % (0-6); Hematocrit 33.5 % (33.0-51.0); Hemoglobin 11.4 g/dL (11.5-16.0); IMMATURE GRAN ABSOLUTE AUTO 0.02 K/mm3 (0.00-0.10); IMMATURE GRAN PERCENT AUTO 0 % (0-1); LYMPHOCYTES ABSOLUTE AUTO 1.63 K/mm3 (0.84-5.20); LYMPHOCYTES PERCENT AUTO 21 % (21-46); MONOCYTES ABSOLUTE AUTO 0.41 K/mm3 (0.16-1.47); MONOCYTES PERCENT AUTO 5 % (4-13); Mean Corpuscular HGB 31.1 pg (26.0-34.0); Mean Corpuscular Volume 92 fL (80-100); NEUTROPHILS ABSOLUTE AUTO 5.28 K/mm3 (1.96-9.15); NEUTROPHILS PERCENT AUTO 69 % (41-73); RDW Coefficient Variation 13.5 % (11.7-14.2); RDW Standard Deviation 44.9 fL (35.1-46.3); Red Blood Cell Count 3.66 M/mm3 (3.80-5.20); White Blood Cell Count 7.68 K/mm3 (4.00-11.30)
[2022-11-03 10:30] LABS: Platelet Count 221 K/mm3 (150-400)
== END 2022-11-03 08:34 | disposition home or self-care (01) ==
LOC: ER 06:22
PROVIDERS: Student in an Organized Health Care Education/Training Program
DX: O21.0 Mild hyperemesis gravidarum (principal); O99.322 Drug use complicating pregnancy, second trimester; F12.90 Cannabis use, unspecified, uncomplicated; O99.282 Endocrine, nutritional and metabolic diseases complicating pregnancy, second trimester; E86.0 Dehydration; Z91.018 Allergy to other foods; Z91.040 Latex allergy status; Z79.82 Long term (current) use of aspirin; Z3A.22 22 weeks gestation of pregnancy
CPT/HCPCS: 80048; 80076; 83690; 83735; 85025; 93005; 93010; J1790; J7042; J7120

== ENCOUNTER 2022-11-04 12:23 | Observation (INO) | payer OTHER ==
[~2022-11-04] VITALS: Ht 160 cm; Wt 74.8 kg
[2022-11-04 12:51] LABS: BASOPHILS ABSOLUTE AUTO 0.07 K/mm3 (0.00-0.23); BASOPHILS PERCENT AUTO 1 % (0-2); EOSINOPHILS ABSOLUTE AUTO 0.15 K/mm3 (0.00-0.68); EOSINOPHILS PERCENT AUTO 1 % (0-6); Hematocrit 33.9 % (33.0-51.0); Hemoglobin 11.5 g/dL (11.5-16.0); IMMATURE GRAN ABSOLUTE AUTO 0.05 K/mm3 (0.00-0.10); IMMATURE GRAN PERCENT AUTO 0 % (0-1); LYMPHOCYTES PERCENT AUTO 22 % (21-46); MONOCYTES ABSOLUTE AUTO 0.79 K/mm3 (0.16-1.47); MONOCYTES PERCENT AUTO 7 % (4-13); Mean Corpuscular HGB 31.3 pg (26.0-34.0); Mean Corpuscular HGB Conc 33.9 g/dL (31.5-36.5); Mean Corpuscular Volume 92 fL (80-100); Mean Platelet Volume 9.1 fL (9.1-12.4); NEUTROPHILS ABSOLUTE AUTO 8.36 K/mm3 (1.96-9.15); NEUTROPHILS PERCENT AUTO 69 % (41-73); Platelet Count 308 K/mm3 (150-400); RDW Coefficient Variation 13.4 % (11.7-14.2); RDW Standard Deviation 45.3 fL (35.1-46.3); Red Blood Cell Count 3.68 M/mm3 (3.80-5.20); White Blood Cell Count 12.12 K/mm3 (4.00-11.30)
[2022-11-04 13:07] LABS: Albumin, Blood 3.7 g/dL (3.4-5.0); Bilirubin, Total 0.6 mg/dL (0.1-1.0); Bun/Creatinine Ratio 12.6 (12.0-20.0); Calcium, Blood 8.9 mg/dL (8.5-10.1); Creatinine, Blood 0.48 mg/dL (0.40-1.00); Globulin, Blood 3.7 g/dL (2.2-4.0); Potassium, Blood 3.8 mmol/L (3.5-5.5); Total Protein, Blood 7.4 g/dL (6.4-8.2)
--- NOTE | 2022-11-04 20:39 | NUR ---
DR RESENDIZ CALLS TO CHECK ON PT. HE IS UPDATED, NO NEW ORDERS AT THIS TIME.
--- NOTE | 2022-11-04 21:52 | NUR ---
DR RESENDIZ IS CALLED FOR ORDERS FOR LA PHENERGAN AND PROTONIX. UPDATED ON PT. HE WILL SEE HER IN THE MORNING.
--- NOTE | 2022-11-04 22:30 | NUR ---
PT IS MOVED TO ROOM 130 FOR WARM SHOWER. SHE REPORTS THAT NAUSEA COMES IN WAVES AND THAT HOT SHOWERS HELP.
[2022-11-04 22:32] LABS: Source, Urine Clean Catch
[2022-11-04 22:35] LABS: Appearance, Urine Clear (Clear); Bilirubin, Urine Neg (Neg); Blood, Urine Neg (Neg); Color, Urine Yellow (P-Yellow); Glucose Qualitative, Urine 2+ (Neg); Ketones, Urine 4+ (Neg); Leukocyte Esterase, Urine Neg (Neg); Nitrite, Urine Neg (Neg); Protein, Urine 2+ (Neg); Specific Gravity, Urine 1.015 (1.003-1.022); Urobilinogen, Urine NORM (Normal); pH, Urine 6.5 (5.0-8.0)
[2022-11-04 22:41] LABS: Bacteria Many /hpf; Red Blood Cells, Urine 0-2 /hpf (0-2); Renal Epithelial Rare /hpf (0-Rare); Squamous Epithelial Cells Mod /hpf (Few)
[2022-11-04 23:12] VITALS: BP 113/64
--- NOTE | 2022-11-04 23:31 | NUR ---
PT IS OUT OF THE SHOWER AGAIN AND STATES THAT THE CO PHENERGAN AND SHOWER ARE HELPING HER NAUSEA. NEW IV ATTEMPTED, UNSUCCESSFUL. PT STATES SHE IS GOING TO TRY TO GET SOME SLEEP.
[2022-11-05] VITALS (8 sets, daily range): BP systolic 81–130; BP diastolic 52–75
--- NOTE | 2022-11-05 01:30 | NUR ---
PT IS SLEEPING SOUNDLY ON HER L SIDE.
--- NOTE | 2022-11-05 02:33 | NUR ---
PT IS UP TO SHOWER AGAIN.
--- NOTE | 2022-11-05 07:26 | NUR ---
Pt up to shower, IV saline locked.
--- NOTE | 2022-11-05 10:10 | NUR ---
Pt up to shower after Wonderly in to round. IV saline locked.
--- NOTE | 2022-11-05 10:41 | NUR ---
OR CHARGE CAROLYN MOORE RN NOTIFIED OF INDUCTION VTOL
--- NOTE | 2022-11-05 11:55 | NUR ---
Pt up to shower after zofran given. Saline locked for now.
--- NOTE | 2022-11-05 13:01 | NUR ---
Pt back to bed, IVF restarted. Ice water and popsicle given per request. Pt states still not feeling well.
--- NOTE | 2022-11-05 13:40 | NUR ---
Compazine given, IVF running. Unable to kep down popsicle. Will call if wants to get p to shower.
--- NOTE | 2022-11-05 15:09 | NUR ---
pt request to be disconnected from her iv fluids to shower, tried to leave her connected to the iv fluids and she reports it just doesnt work, disconnected pt iv fluids per her request
--- NOTE | 2022-11-05 15:30 | NUR ---
pt has low grade temp from her hot shower, she just got out and wanted a new iv site, she is tired of not being able to bend her arm and requests new iv site,
--- NOTE | 2022-11-05 16:00 | NUR ---
pt up to shower with iv fluids continuing, explained that the bag of iv fluids should be in and we should be hanging a new bag to help her, but because we keep stopping it, she isnt getting all the fluids she needs, she agreed to leaving it running, offered to add extension tubing if the iv tubing isnt long enough. pt will let rn know
--- NOTE | 2022-11-05 17:57 | NUR ---
pt getting into shower again, reports pain is a little better, she is smiling a little.
--- NOTE | 2022-11-05 18:56 | NUR ---
check with pharmacy, iv fluids ordered as a one time bag of fluid, to call dr garcia and see if was wanting continious fluids
[2022-11-06] VITALS (7 sets, daily range): BP systolic 92–136; BP diastolic 53–73
--- NOTE | 2022-11-06 18:45 | NUR ---
11/06/221839 PT STATES SHE IS FEELING BETTER, WAS ABLE TO EAT 3/4 PIECE OF WHITE BREAD TOAST WITH BUTTER AND JAB AND DENIES NAUSEA AT THIS TIME
--- NOTE | 2022-11-06 19:14 | NUR ---
05-- [facility] 135
--- NOTE | 2022-11-06 19:22 | NUR ---
11-06-22 1200 PT REQUESTING PAIN MEDS AND APPEARS SHAKY AND NOTICEABLY UNCOMFORTABLE
--- NOTE | 2022-11-06 21:28 | NUR ---
2000 PT ASLEEP. 2100 RN INTO ROOM TO GIVE 2100 MEDS AND ASSESS PT. PT DENIES PAIN AND N/V, STATES THAT SHE IS FEELING BETTER. RN EXPLAINED THAT THE PLAN TONIGHT IS TO LET HER REST/SLEEP MUCH SHE CAN. PT INQUIRES ABOUT PAIN MEDS, ASKING IF SHE "HAS ANYTHING DUE." RN STATES THAT SHE IS ABLE TO HAVE PAIN MEDS IF SHE IS PAINFUL. PT STATES "CAUSE THOSE WILL KNOCK ME OUT." RN EDUCATED THAT PAIN MEDS CAN NOT BE GIVEN TO AID IN SLEEP, BUT THAT RN CAN CALL PROVIDER TO INQUIRE ABOUT A SLEEP AID MEDICATION SUCH BENADRYL OR AMBIEN. PT DECLINES, SAYING THAT HER 2100 [address] SHOULD HELP HER TO SLEEP. RN ASKED PT TO CALL IF SHE HAS A HARD TIME SLEEPING, PT AGREES.
--- NOTE | 2022-11-06 23:47 | NUR ---
PT REQUESTING SLEEPING MEDICATION. Rosina SHEPARD CNM CALLED FOR ORDERS. AMBIEN ORDER IS RECEIVED. PT STATES THAT HER EPIGASTRIC PAIN HAS BEEN MUCH BETTER SINCE HER N/V HAS IMPROVED. VSS.
[2022-11-07 05:48] VITALS: BP 92/53
[2022-11-07 06:38] LABS: Bun/Creatinine Ratio 9.1 (12.0-20.0); Calcium, Blood 7.8 mg/dL (8.5-10.1); Creatinine, Blood 0.44 mg/dL (0.40-1.00); Potassium, Blood 3.1 mmol/L (3.5-5.5)
[2022-11-07 08:38] VITALS: BP 93/56
--- NOTE | 2022-11-07 09:10 | NUR ---
pt called rn to room, reports starting to have pain feeling that is moving into her chest as a little pain with a pressure sensation or squeezing sensation to her chest making it uncomfortable to breath. pt just got of the phone with her family and there is drama at home. pt asking for meds to make it stop. talked to pt about it sounding like a panic/anxiety attack. called haroldo coates, who gave an order for trialing ativan 2mg po first if doesnt work after 30-40 minutes to give iv fentanyl. pt really wants to go home and is aware cant go home on iv fentanyl. she is also aware that her that talking to her family on the phone triggered this response. pt is also aware that she is showering less and that it could be related to using to much thc due to stress. we discussed stoping thc or cutting use in half.
--- NOTE | 2022-11-07 10:30 | NUR ---
pt reports the ativan is working, we talked about what made her anxious and she reports talking about it didnt even trigger an anxiety/panic attack.
[2022-11-07 12:02] VITALS: BP 100/55
--- NOTE | 2022-11-07 12:15 | NUR ---
pt laying in bed, trying to nap, turned lights off, took a few bites of lunch and drank most of her chocolate milk. wonderly put in new orders
[2022-11-07 16:01] VITALS: BP 98/58
[2022-11-07 19:29] VITALS: BP 109/66
[2022-11-07 21:27] LABS: Source, Urine Clean Catch
[2022-11-07 21:29] LABS: Bilirubin, Urine Neg (Neg); Blood, Urine Neg (Neg); Glucose Qualitative, Urine Neg (Neg); Ketones, Urine Neg (Neg); Leukocyte Esterase, Urine Neg (Neg); Nitrite, Urine Neg (Neg); Protein, Urine Neg (Neg); Urobilinogen, Urine NORM (Normal)
[2022-11-07 21:44] LABS: Appearance, Urine Hazy (Clear); Bacteria Few /hpf; Color, Urine Yellow (P-Yellow); Red Blood Cells, Urine Not Seen /hpf (0-2); Squamous Epithelial Cells Many /hpf (Few); White Blood Cells, Urine 0-2 /hpf (0-5)
[2022-11-08 04:43] VITALS: BP 104/60
[2022-11-08 06:46] LABS: Calcium, Blood 7.5 mg/dL (8.5-10.1); Creatinine, Blood 0.45 mg/dL (0.40-1.00); Potassium, Blood 3.3 mmol/L (3.5-5.5)
[2022-11-08 07:10] VITALS: BP 117/74
--- NOTE | 2022-11-08 07:20 | NUR ---
FHTs: 140
[2022-11-08] MEDS ORDERED: LORA2 PO (09:36)
== END 2022-11-08 09:43 | disposition home or self-care (01) ==
LOC: ER 12:23 → BC 12:24 → ERHOLD 12:24 → ER 12:24 → BC 18:40
PROVIDERS: Advanced Practice Midwife; Obstetrics & Gynecology; Student in an Organized Health Care Education/Training Program; ADMIT Obstetrics & Gynecology
DX: O99.322 Drug use complicating pregnancy, second trimester (principal); F12.988 Cannabis use, unspecified with other cannabis-induced disorder; O21.0 Mild hyperemesis gravidarum; Z3A.23 23 weeks gestation of pregnancy; Z91.040 Latex allergy status; Z79.82 Long term (current) use of aspirin; Z79.899 Other long term (current) drug therapy
CPT/HCPCS: 36415; 76815; 80048; 80051; 80053; 81001; 83690; 83735; 85025; 87086; 93005; 93010; 96361; 96374; 96375; 99285-25; A9270; C9113; J0780; J1170; J1720; J1790; J2270; J2405; J2550; J2765; J3010; J3411; J7040; J7042; J7120; Q0164

== ENCOUNTER 2022-11-22 03:36 | Day surgery (SDC) | payer OTHER ==
[~2022-11-22 03:36] MED LIST changes: +LORA2 PO
[2022-11-22 15:03] VITALS: BP 94/56
--- NOTE | 2022-11-22 16:09 | NUR ---
PT DECLINED SECOND BAG OF D5W-LR
== END 2022-11-22 16:10 | disposition home or self-care (01) ==
LOC: ATC 03:36
DX: O21.1 Hyperemesis gravidarum with metabolic disturbance (principal); O21.9 Vomiting of pregnancy, unspecified; Z3A.24 24 weeks gestation of pregnancy
CPT/HCPCS: J2405; J7121

== ENCOUNTER 2023-01-24 11:17 | Day surgery (SDC) | payer OTHER ==
[2023-01-24 14:32] VITALS: BP 94/66
== END 2023-01-24 15:39 | disposition home or self-care (01) ==
LOC: ATC 11:17
DX: O21.1 Hyperemesis gravidarum with metabolic disturbance (principal); Z3A.25 25 weeks gestation of pregnancy; Z87.891 Personal history of nicotine dependence; Z91.040 Latex allergy status; Z91.018 Allergy to other foods
CPT/HCPCS: 96361; 96374; J2405; J7121

== ENCOUNTER 2023-01-31 10:05 | Inpatient (IN) | payer OTHER ==
[2023-01-31] VITALS (14 sets, daily range): BP systolic 90–130; BP diastolic 55–97
[~2023-01-31] VITALS: Ht 160 cm; Wt 76.2 kg
[2023-01-31 17:08] LABS: BASOPHILS ABSOLUTE AUTO 0.05 K/mm3 (0.00-0.23); BASOPHILS PERCENT AUTO 1 % (0-2); EOSINOPHILS ABSOLUTE AUTO 0.13 K/mm3 (0.00-0.68); EOSINOPHILS PERCENT AUTO 2 % (0-6); Hematocrit 35.6 % (33.0-51.0); Hemoglobin 12.4 g/dL (11.5-16.0); IMMATURE GRAN ABSOLUTE AUTO 0.02 K/mm3 (0.00-0.10); IMMATURE GRAN PERCENT AUTO 0 % (0-1); LYMPHOCYTES ABSOLUTE AUTO 2.49 K/mm3 (0.84-5.20); LYMPHOCYTES PERCENT AUTO 30 % (21-46); MONOCYTES ABSOLUTE AUTO 0.73 K/mm3 (0.16-1.47); MONOCYTES PERCENT AUTO 9 % (4-13); Mean Corpuscular HGB Conc 34.8 g/dL (31.5-36.5); Mean Corpuscular Volume 92 fL (80-100); Mean Platelet Volume 9.4 fL (9.1-12.4); NEUTROPHILS ABSOLUTE AUTO 4.91 K/mm3 (1.96-9.15); NEUTROPHILS PERCENT AUTO 59 % (41-73); Platelet Count 202 K/mm3 (150-400); RDW Coefficient Variation 13.1 % (11.7-14.2); RDW Standard Deviation 43.4 fL (35.1-46.3); Red Blood Cell Count 3.88 M/mm3 (3.80-5.20); White Blood Cell Count 8.33 K/mm3 (4.00-11.30)
[2023-01-31 18:58] LABS: Albumin, Blood 3.1 g/dL (3.4-5.0); Bilirubin, Total 0.8 mg/dL (0.1-1.0); Bun/Creatinine Ratio 10.1 (12.0-20.0); Calcium, Blood 8.3 mg/dL (8.5-10.1); Creatinine, Blood 0.5 mg/dL (0.40-1.00); Globulin, Blood 3.1 g/dL (2.2-4.0); Potassium, Blood 3.5 mmol/L (3.5-5.5); Total Protein, Blood 6.2 g/dL (6.4-8.2)
--- NOTE | 2023-01-31 19:58 | NUR ---
01/31/231957 Kianna Ram CORD AND CORD BLOOD SENT WITH L&D STAFF
[2023-02-01 07:12] VITALS: BP 92/58
[2023-02-01 07:58] LABS: BASOPHILS ABSOLUTE AUTO 0.07 K/mm3 (0.00-0.23); BASOPHILS PERCENT AUTO 1 % (0-2); EOSINOPHILS ABSOLUTE AUTO 0.18 K/mm3 (0.00-0.68); EOSINOPHILS PERCENT AUTO 2 % (0-6); Hemoglobin 9.7 g/dL (11.5-16.0); IMMATURE GRAN ABSOLUTE AUTO 0.03 K/mm3 (0.00-0.10); IMMATURE GRAN PERCENT AUTO 0 % (0-1); LYMPHOCYTES ABSOLUTE AUTO 2.02 K/mm3 (0.84-5.20); LYMPHOCYTES PERCENT AUTO 24 % (21-46); MONOCYTES ABSOLUTE AUTO 0.56 K/mm3 (0.16-1.47); MONOCYTES PERCENT AUTO 7 % (4-13); Mean Corpuscular HGB 32.1 pg (26.0-34.0); Mean Corpuscular HGB Conc 34.6 g/dL (31.5-36.5); Mean Corpuscular Volume 93 fL (80-100); Mean Platelet Volume 9.6 fL (9.1-12.4); NEUTROPHILS ABSOLUTE AUTO 5.74 K/mm3 (1.96-9.15); NEUTROPHILS PERCENT AUTO 67 % (41-73); Platelet Count 153 K/mm3 (150-400); RDW Standard Deviation 44.1 fL (35.1-46.3); Red Blood Cell Count 3.02 M/mm3 (3.80-5.20)
[2023-02-01 11:53] VITALS: BP 116/75
[2023-02-01 15:17] VITALS: BP 115/79
[2023-02-01 19:48] VITALS: BP 122/68
[2023-02-02 00:04] VITALS: BP 130/76
[2023-02-02 04:34] VITALS: BP 112/75
[2023-02-02 07:31] VITALS: BP 114/81
--- NOTE | 2023-02-02 08:13 | NUR ---
pt walking to cafeteria
--- NOTE | 2023-02-02 09:19 | NUR ---
pt in nursery with baby, aware kl cnm changed pain medication. pt aware just needs to ask for it.
[2023-02-02 11:16] VITALS: BP 108/70
--- NOTE | 2023-02-02 13:15 | NUR ---
amb to cafeteria
--- NOTE | 2023-02-02 14:33 | NUR ---
pt resting, encouraged to sleep and rn wont wake pt up til [id number] for vs. pt is ok with this plan
[2023-02-02 16:47] VITALS: BP 127/78
[2023-02-02 20:19] VITALS: BP 110/70
[2023-02-03 02:37] VITALS: BP 115/83
[2023-02-03] MEDS ORDERED: OXYC5 PO (07:20)
[2023-02-03] MEDS ORDERED: ENOX40I SC (07:20)
[2023-02-03] MEDS ORDERED: DOCU100 PO (07:21)
[2023-02-03 08:42] VITALS: BP 119/84
--- NOTE | 2023-02-03 10:31 | NUR ---
malorie coates notified pt need prior authorization for lovenox thru [facility], malorie is going to work on her end toget it authorized, mandie to call care management for additional help
[2023-02-03 11:49] VITALS: BP 132/82
--- NOTE | 2023-02-03 12:05 | NUR ---
MATTEO CNM TO COME DURING LUNCH HR AND WRITE A SCRIPT FOR 10 DOSES OF LOVENOX FOR PT TOGET FILLE WITH HOSPITAL MEDICATION VOUCHER.
--- NOTE | 2023-02-03 17:50 | NUR ---
pt has her doese of lovenox at bedside, aware how to give them to herself, did education yesterday and pt gave her injection this am with rn ovservation, pt is being discharged to boarder status, denies any questions about dc instructins, will remain at hosptial to help care for baby innursery and can ask rns questions at any time, pt has ppfu made for tuesday 3 steri strips replaced that fell off,
== END 2023-02-03 17:50 | disposition home or self-care (01) | DRG 787 ==
LOC: OBS 10:05 → BC 10:07 → OBS 13:12 → BC 13:15
PROVIDERS: ADMIT Obstetrics & Gynecology
PROC: 4A0HXCZ Measurement of Products of Conception, Cardiac Rate, External Approach (ICD-10-PCS; 2023-01-31)
PROC: 10D00Z1 Extraction of Products of Conception, Low, Open Approach (ICD-10-PCS; principal; 2023-01-31 18:00)
DX: O36.5930 Maternal care for other known or suspected poor fetal growth, third trimester, not applicable or unspecified (principal); D68.51 Activated protein C resistance; O99.12 Other diseases of the blood and blood-forming organs and certain disorders involving the immune mechanism complicating childbirth; O69.1XX0 Labor and delivery complicated by cord around neck, with compression, not applicable or unspecified; O76 Abnormality in fetal heart rate and rhythm complicating labor and delivery; F41.9 Anxiety disorder, unspecified; F32.A Depression, unspecified; O99.344 Other mental disorders complicating childbirth; Z79.82 Long term (current) use of aspirin; Z79.899 Other long term (current) drug therapy; Z37.0 Single live birth; Z3A.35 35 weeks gestation of pregnancy; Z91.040 Latex allergy status; Z91.018 Allergy to other foods
CPT/HCPCS: 36415; 59025; 76819; 80053; 81003; 85025; 85460; 86850; 86900; 86901; A9270; J0690; J1650; J1885; J2270; J2405; J2590; J2704; J2765; J3010; J7120

== ENCOUNTER 2023-07-03 10:29 | Inpatient (IN) | payer OTHER ==
[~2023-07-03] VITALS: Ht 160 cm; Wt 69.5 kg
[~2023-07-03 10:29] MED LIST changes: +DOCU100 PO; +ENOX40I SC; +OXYC5 PO
[2023-07-03 13:15] LABS: BASOPHILS PERCENT AUTO 1 % (0-2); EOSINOPHILS ABSOLUTE AUTO 0.29 K/mm3 (0.00-0.68); EOSINOPHILS PERCENT AUTO 3 % (0-6); Hematocrit 36.2 % (33.0-51.0); Hemoglobin 11.9 g/dL (11.5-16.0); IMMATURE GRAN ABSOLUTE AUTO 0.04 K/mm3 (0.00-0.10); IMMATURE GRAN PERCENT AUTO 0 % (0-1); LYMPHOCYTES ABSOLUTE AUTO 2.09 K/mm3 (0.84-5.20); LYMPHOCYTES PERCENT AUTO 20 % (21-46); MONOCYTES PERCENT AUTO 6 % (4-13); Mean Corpuscular HGB 30.6 pg (26.0-34.0); Mean Corpuscular HGB Conc 32.9 g/dL (31.5-36.5); Mean Corpuscular Volume 93 fL (80-100); Mean Platelet Volume 8.7 fL (9.1-12.4); NEUTROPHILS ABSOLUTE AUTO 7.59 K/mm3 (1.96-9.15); NEUTROPHILS PERCENT AUTO 71 % (41-73); Platelet Count 297 K/mm3 (150-400); RDW Coefficient Variation 13.3 % (11.7-14.2); RDW Standard Deviation 46.2 fL (35.1-46.3); Red Blood Cell Count 3.89 M/mm3 (3.80-5.20); White Blood Cell Count 10.71 K/mm3 (4.00-11.30)
[2023-07-03 13:32] LABS: Bun/Creatinine Ratio 16.5 (12.0-20.0); Calcium, Blood 8.1 mg/dL (8.5-10.1); Creatinine, Blood 0.61 mg/dL (0.40-1.00); Potassium, Blood 3.9 mmol/L (3.5-5.5)
[2023-07-03 14:31] LABS: Anti-Xa UFH, PHA Monitoring <0.10 IU/mL; International Normalized Ratio 0.98; Prothrombin Time Results 10.3 Sec (9.7-11.5)
[2023-07-03 15:58] VITALS: BP 103/73
--- NOTE | 2023-07-03 19:28 | NUR ---
SHIFT SUMMARY S/P R ANKLE FX, A/OX4, VSS, TOLERATING PO, SHE HAD A HARD TIME WITH PAIN MANAGEMENT WHEN SHE FIRST GOT TO THE FLOOR, DISCUSSED WITH MD AND GOT ADDITIONAL ORDERED. IV #2 STARTED TO GIVE HEPARIN A DEDICATED LINE. R ANKLE IN BRACE PLACE IN ER. NO ACUTE EVENTS THIS SHIFT, CALL LIGHT IN REACH.
[2023-07-03 23:01] VITALS: BP 95/60
[2023-07-04] VITALS (16 sets, daily range): BP systolic 98–148; BP diastolic 55–129
--- NOTE | 2023-07-04 03:27 | NUR ---
SHIFT SUMMARY PT RESTED INTERMITTENTLY T/O NIGHT. AAOX4. REPORTING LARGE AMOUNTS OF DISCOMFORT WAKING UP TO HER AFFECTED EXTREMITY "TWITCHING." PAIN DECREASED WITH 1MG IV DILAUDID Q2H. NAUSEA DECREASED WITH ZOFRAN X1 YESTARDAY EVENING POST X1 300cc EMESIS YESTARDAY EVENING. SPLINT TO RLE C/D/I. PT REPORTING INTERMITTENT TINGLING, DENES NUMBNESS, MOVES TOES WELL BLE. NPO SINCE MIDNIGHT. HEPARIN GTT INFUSING PER PHARMACY AND TO BE PAUSED AT 0600 THIS AM. PT CURRENTLY RESTING IN BED AT THIS TIME WITH CALL LIGHT IN REACH.
[2023-07-04 05:50] LABS: BASOPHILS ABSOLUTE AUTO 0.06 K/mm3 (0.00-0.23); BASOPHILS PERCENT AUTO 1 % (0-2); EOSINOPHILS ABSOLUTE AUTO 0.37 K/mm3 (0.00-0.68); EOSINOPHILS PERCENT AUTO 5 % (0-6); Hematocrit 35.4 % (33.0-51.0); Hemoglobin 11.8 g/dL (11.5-16.0); IMMATURE GRAN ABSOLUTE AUTO 0.02 K/mm3 (0.00-0.10); IMMATURE GRAN PERCENT AUTO 0 % (0-1); LYMPHOCYTES ABSOLUTE AUTO 2.49 K/mm3 (0.84-5.20); LYMPHOCYTES PERCENT AUTO 33 % (21-46); MONOCYTES ABSOLUTE AUTO 0.61 K/mm3 (0.16-1.47); MONOCYTES PERCENT AUTO 8 % (4-13); Mean Corpuscular HGB 30.9 pg (26.0-34.0); Mean Corpuscular HGB Conc 33.3 g/dL (31.5-36.5); Mean Corpuscular Volume 93 fL (80-100); NEUTROPHILS ABSOLUTE AUTO 3.95 K/mm3 (1.96-9.15); NEUTROPHILS PERCENT AUTO 53 % (41-73); Platelet Count 285 K/mm3 (150-400); RDW Coefficient Variation 13.4 % (11.7-14.2); RDW Standard Deviation 45.5 fL (35.1-46.3); Red Blood Cell Count 3.82 M/mm3 (3.80-5.20)
[2023-07-04 06:11] LABS: Bun/Creatinine Ratio 13.7 (12.0-20.0); Calcium, Blood 8.5 mg/dL (8.5-10.1); Creatinine, Blood 0.59 mg/dL (0.40-1.00); Potassium, Blood 3.4 mmol/L (3.5-5.5)
--- NOTE | 2023-07-04 06:21 | NUR ---
HEPARIN GTT PAUSED AT 0600 PER ORDERS. PHARMACY NOTIFIED.
--- NOTE | 2023-07-04 13:32 | NUR ---
[facility]
--- NOTE | 2023-07-04 13:48 | NUR ---
PT TO DAY SURGERY WITH 18G IV IN RIGHT WRIST; 20G IV IN LEFT AC
--- NOTE | 2023-07-04 17:43 | NUR ---
07/04/23 1743 Kianna Ram SMALL CIRCULAR LESIONS PRESENT ON RLE PRIOR TO PROCEDURE
--- NOTE | 2023-07-04 18:44 | NUR ---
POST OP RETURN TO SURGICAL UNIT SLEEPING, BUT OPENS EYES TO NAME THEN FALLS BACK TO SLEEP. VSS ON 3L NC. CAP REFILL BRISK TO RLE. ELEVATED ON PILLOW. CALL LIGHT ON LAP.
[2023-07-05 04:26] LABS: BASOPHILS ABSOLUTE AUTO 0.02 K/mm3 (0.00-0.23); BASOPHILS PERCENT AUTO 0 % (0-2); EOSINOPHILS PERCENT AUTO 0 % (0-6); Hematocrit 29.6 % (33.0-51.0); Hemoglobin 9.9 g/dL (11.5-16.0); IMMATURE GRAN ABSOLUTE AUTO 0.03 K/mm3 (0.00-0.10); IMMATURE GRAN PERCENT AUTO 0 % (0-1); LYMPHOCYTES ABSOLUTE AUTO 1.25 K/mm3 (0.84-5.20); LYMPHOCYTES PERCENT AUTO 17 % (21-46); MONOCYTES ABSOLUTE AUTO 0.76 K/mm3 (0.16-1.47); MONOCYTES PERCENT AUTO 10 % (4-13); Mean Corpuscular HGB 31.7 pg (26.0-34.0); Mean Corpuscular HGB Conc 33.4 g/dL (31.5-36.5); Mean Corpuscular Volume 95 fL (80-100); Mean Platelet Volume 8.8 fL (9.1-12.4); NEUTROPHILS ABSOLUTE AUTO 5.47 K/mm3 (1.96-9.15); NEUTROPHILS PERCENT AUTO 73 % (41-73); Platelet Count 262 K/mm3 (150-400); RDW Coefficient Variation 13.3 % (11.7-14.2); RDW Standard Deviation 46.5 fL (35.1-46.3); Red Blood Cell Count 3.12 M/mm3 (3.80-5.20); White Blood Cell Count 7.53 K/mm3 (4.00-11.30)
[2023-07-05 04:32] VITALS: BP 114/71
--- NOTE | 2023-07-05 04:56 | NUR ---
SHIFT SUMMARY PT STRUGGLED WITH ANXIEY + PAIN MANAGEMENT THIS SHIFT. PERCOCET + IV DILAUDID FOR BREAKTHROUGH PAIN CONTROL. ENCOURAGING ELEVATION + ICE TO RLE, BUT PT NOT VERY COOPERATIVE. ORAL ATIVAN FOR ANXIETY. UP TO BSC WITH FWW SBA. RAMSES WRAP TO RLE REMAINS CDI. PT DENIES N/T. ABLE TO WIGGLE TOES. PEDAL PULSES STRONG AND CAP REFILL <3 SECONDS. TRACE SWELLING TO TOES. HEPARIN GTT INFUSING PER PHARMACY. PT USES CALL LIGHT FREQUENTLY.
[2023-07-05 05:49] LABS: Magnesium, Blood 1.9 mg/dL (1.6-2.4)
[2023-07-05 05:50] LABS: Albumin, Blood 3.4 g/dL (3.4-5.0); Anion Gap 7 mmol/L (6-16); Blood Urea Nitrogen 5 mg/dL (8-24); Bun/Creatinine Ratio 8.7 (12.0-20.0); CO2, Blood 24 mmol/L (21-32); Calcium, Blood 8.2 mg/dL (8.5-10.1); Chloride, Blood 111 mmol/L (98-108); Creatinine, Blood 0.57 mg/dL (0.40-1.00); Glomerular Filtration Rate 121 (60-); Glucose, Blood 106 mg/dL (70-99); Phosphorus, Blood 3.7 mg/dL (2.5-4.9); Potassium, Blood 3.7 mmol/L (3.5-5.5); Sodium, Blood 142 mmol/L (136-145)
[2023-07-05 07:36] VITALS: BP 102/74
[2023-07-05] MEDS ORDERED: PERCOCET 10-321 EA13 PO (12:13)
[2023-07-05] MEDS ORDERED: XARELTO PO (12:14)
--- NOTE | 2023-07-05 12:30 | NUR ---
DISCHARGE PAIN MUCH BETTER MANAGED. DR WEBBER INTO SEE PT; DISCUUSED POST OP CARE IN DEPTH. WORKED w/ THERAPY. REPORTS UNDERSTANDING OF IMPORTANCE OF WOUND CARE, ICE & ELEVATION, USE OF FWW, & F/U APPOINTMENT. ESCORTED OUT VIA WC.
== END 2023-07-05 12:33 | disposition home or self-care (01) | DRG 493 ==
LOC: ER 10:29 → SURS 13:33
PROVIDERS: Emergency Medicine; Orthopaedic Surgery Sports Medicine; ADMIT Internal Medicine
PROC: 0QSGXZZ Reposition Right Tibia, External Approach (ICD-10-PCS; 2023-07-03)
PROC: 0QSG36Z Reposition Right Tibia with Intramedullary Internal Fixation Device, Percutaneous Approach (ICD-10-PCS; principal; 2023-07-04 14:00)
DX: S82.241A Displaced spiral fracture of shaft of right tibia, initial encounter for closed fracture (principal); D68.51 Activated protein C resistance; S82.831A Other fracture of upper and lower end of right fibula, initial encounter for closed fracture; W01.0XXA Fall on same level from slipping, tripping and stumbling without subsequent striking against object, initial encounter; Y92.008 Other place in unspecified non-institutional (private) residence as the place of occurrence of the external cause; F41.9 Anxiety disorder, unspecified; F32.A Depression, unspecified; R11.15 Cyclical vomiting syndrome unrelated to migraine; E87.6 Hypokalemia; Z91.040 Latex allergy status
CPT/HCPCS: 36415; 73590; 73600; 80048; 80069; 83735; 85025; 85520; 85610; 85730; 97116; 97162; A9270; J0171; J0690; J1100; J1170; J1644; J2250; J2270; J2405; J2704; J2765; J3010; J3480; J7030; J7120

== ENCOUNTER → 2023-09-30 | Outpatient (CLI) | payer OTHER ==
[~2023-09-30] MED LIST changes: +PERCOCET 10-321 EA13 PO; +XARELTO PO
[2023-09-30 22:25] LABS: Albumin, Blood 4.4 g/dL (3.4-5.0); Albumin/Globulin Ratio 1.3 (0.8-1.8); Bilirubin, Total 0.8 mg/dL (0.1-1.0); Bun/Creatinine Ratio 13.5 (12.0-20.0); Creatinine, Blood 0.59 mg/dL (0.40-1.00); Globulin, Blood 3.3 g/dL (2.2-4.0); Potassium, Blood 4.2 mmol/L (3.5-5.5); Total Protein, Blood 7.7 g/dL (6.4-8.2)
== END | disposition home or self-care (01) ==
LOC: LAB SHORT 15:13 → LAB 15:13
PROVIDERS: Physician Assistant
DX: Z51.81 Encounter for therapeutic drug level monitoring (principal); Z79.899 Other long term (current) drug therapy
CPT/HCPCS: 80053

== ENCOUNTER 2023-10-08 04:03 | Emergency (ER) | payer OTHER ==
[~2023-10-08] VITALS: Ht 167.6 cm; Wt 61.2 kg
[2023-10-08] MEDS ORDERED: Droperidol 5 mg/2 ml Vial IV ONE ×2 (04:15→05:50)
[2023-10-08 04:18] LABS: BASOPHILS ABSOLUTE AUTO 0.14 K/mm3 (0.00-0.23); BASOPHILS PERCENT AUTO 1 % (0-2); EOSINOPHILS ABSOLUTE AUTO 0.08 K/mm3 (0.00-0.68); EOSINOPHILS PERCENT AUTO 1 % (0-6); Hematocrit 38.6 % (33.0-51.0); IMMATURE GRAN ABSOLUTE AUTO 0.07 K/mm3 (0.00-0.10); IMMATURE GRAN PERCENT AUTO 1 % (0-1); LYMPHOCYTES ABSOLUTE AUTO 3.19 K/mm3 (0.84-5.20); LYMPHOCYTES PERCENT AUTO 23 % (21-46); MONOCYTES ABSOLUTE AUTO 0.51 K/mm3 (0.16-1.47); MONOCYTES PERCENT AUTO 4 % (4-13); Mean Corpuscular HGB Conc 33.7 g/dL (31.5-36.5); Mean Corpuscular Volume 92 fL (80-100); Mean Platelet Volume 8.8 fL (9.1-12.4); NEUTROPHILS ABSOLUTE AUTO 9.94 K/mm3 (1.96-9.15); NEUTROPHILS PERCENT AUTO 71 % (41-73); Platelet Count 383 K/mm3 (150-400); RDW Standard Deviation 43.8 fL (35.1-46.3); White Blood Cell Count 13.93 K/mm3 (4.00-11.30)
[2023-10-08 04:43] LABS: Albumin, Blood 4.5 g/dL (3.4-5.0); Albumin/Globulin Ratio 1.2 (0.8-1.8); Bilirubin, Total 0.5 mg/dL (0.1-1.0); Calcium, Blood 9.2 mg/dL (8.5-10.1); Creatinine, Blood 0.55 mg/dL (0.40-1.00); Globulin, Blood 3.7 g/dL (2.2-4.0); Potassium, Blood 3.8 mmol/L (3.5-5.5); Total Protein, Blood 8.2 g/dL (6.4-8.2)
[2023-10-08] MEDS ORDERED: Capsaicin 0.025% Cream TOP ONE (04:45)
[2023-10-08] MEDS ORDERED: NS 1,000 ML IV SCH (05:15)
[2023-10-08] MEDS ORDERED: ONDA4ODT MM (06:58)
[2023-10-08] MEDS ORDERED: RX Prepack 2 Tabs Ondansetron ODT 4MG UD ONE (07:00)
[2023-10-08 07:35] VITALS: BP 132/95
== END 2023-10-08 07:31 | disposition home or self-care (01) ==
LOC: ER 04:03
PROVIDERS: Student in an Organized Health Care Education/Training Program
DX: R11.2 Nausea with vomiting, unspecified (principal); Z91.040 Latex allergy status; Z91.018 Allergy to other foods; Z79.01 Long term (current) use of anticoagulants; Z79.891 Long term (current) use of opiate analgesic; Z79.899 Other long term (current) drug therapy
CPT/HCPCS: 80053; 83690; 84703; 85025; 93005; 93010; 96361; 96374; 96376; 99285-25; A9270; J1790; J7030

== ENCOUNTER → 2024-01-12 | Outpatient (CLI) | payer OTHER ==
[2024-01-12 11:12] LABS: BASOPHILS ABSOLUTE AUTO 0.06 K/mm3 (0.00-0.23); BASOPHILS PERCENT AUTO 1 % (0-2); EOSINOPHILS ABSOLUTE AUTO 0.41 K/mm3 (0.00-0.68); EOSINOPHILS PERCENT AUTO 9 % (0-6); Hematocrit 36.4 % (33.0-51.0); Hemoglobin 12.4 g/dL (11.5-16.0); IMMATURE GRAN PERCENT AUTO 0 % (0-1); LYMPHOCYTES ABSOLUTE AUTO 1.79 K/mm3 (0.84-5.20); LYMPHOCYTES PERCENT AUTO 38 % (21-46); MONOCYTES ABSOLUTE AUTO 0.34 K/mm3 (0.16-1.47); MONOCYTES PERCENT AUTO 7 % (4-13); Mean Corpuscular HGB 31.4 pg (26.0-34.0); Mean Corpuscular HGB Conc 34.1 g/dL (31.5-36.5); Mean Corpuscular Volume 92 fL (80-100); Mean Platelet Volume 8.7 fL (9.1-12.4); NEUTROPHILS ABSOLUTE AUTO 2.08 K/mm3 (1.96-9.15); NEUTROPHILS PERCENT AUTO 44 % (41-73); Platelet Count 257 K/mm3 (150-400); RDW Coefficient Variation 13.3 % (11.7-14.2); RDW Standard Deviation 45.3 fL (35.1-46.3); Red Blood Cell Count 3.95 M/mm3 (3.80-5.20); White Blood Cell Count 4.68 K/mm3 (4.00-11.30)
[2024-01-12 11:22] LABS: Albumin, Blood 4.1 g/dL (3.4-5.0); Albumin/Globulin Ratio 1.2 (0.8-1.8); Bun/Creatinine Ratio 14.5 (12.0-20.0); Calcium, Blood 8.7 mg/dL (8.5-10.1); Creatinine, Blood 0.69 mg/dL (0.40-1.00); Globulin, Blood 3.4 g/dL (2.2-4.0); Potassium, Blood 3.8 mmol/L (3.5-5.5); Total Protein, Blood 7.5 g/dL (6.4-8.2)
== END | disposition home or self-care (01) ==
LOC: LAB 11:06 → LAB SHORT 11:06
PROVIDERS: Family Medicine
DX: D68.51 Activated protein C resistance (principal)
CPT/HCPCS: 80053; 85025

== ENCOUNTER → 2024-02-03 | Outpatient (CLI) | payer OTHER ==
[2024-02-03 17:36] LABS: BASOPHILS ABSOLUTE AUTO 0.09 K/mm3 (0.00-0.23); BASOPHILS PERCENT AUTO 2 % (0-2); EOSINOPHILS ABSOLUTE AUTO 0.41 K/mm3 (0.00-0.68); EOSINOPHILS PERCENT AUTO 7 % (0-6); Hematocrit 36.2 % (33.0-51.0); IMMATURE GRAN ABSOLUTE AUTO 0.02 K/mm3 (0.00-0.10); IMMATURE GRAN PERCENT AUTO 0 % (0-1); LYMPHOCYTES ABSOLUTE AUTO 2.13 K/mm3 (0.84-5.20); LYMPHOCYTES PERCENT AUTO 38 % (21-46); MONOCYTES PERCENT AUTO 7 % (4-13); Mean Corpuscular HGB Conc 33.1 g/dL (31.5-36.5); Mean Corpuscular Volume 94 fL (80-100); Mean Platelet Volume 9.7 fL (9.1-12.4); NEUTROPHILS ABSOLUTE AUTO 2.53 K/mm3 (1.96-9.15); NEUTROPHILS PERCENT AUTO 45 % (41-73); Platelet Count 319 K/mm3 (150-400); RDW Coefficient Variation 12.8 % (11.7-14.2); RDW Standard Deviation 44.1 fL (35.1-46.3); Red Blood Cell Count 3.87 M/mm3 (3.80-5.20); White Blood Cell Count 5.58 K/mm3 (4.00-11.30)
[2024-02-03 18:15] LABS: Alanine Aminotransfer (ALT/SGP 18 U/L (12-78); Albumin, Blood 4.4 g/dL (3.4-5.0); Albumin/Globulin Ratio 1.3 (0.8-1.8); Alk Phos 91 U/L (50-136); Anion Gap 10 mmol/L (3-11); Aspartate Aminotrans (AST/SGOT 17 U/L (12-37); Bilirubin, Total 0.9 mg/dL (0.1-1.0); Blood Urea Nitrogen 10 mg/dL (8-24); Bun/Creatinine Ratio 16.7 (12.0-20.0); CHOL/HDL RATIO 2.8; CO2, Blood 22 mmol/L (21-32); Calcium, Blood 9.1 mg/dL (8.5-10.1); Chloride, Blood 111 mmol/L (98-108); Cholesterol 179 mg/dL (50-200); Globulin, Blood 3.4 g/dL (2.2-4.0); Glomerular Filtration Rate 118 (60-); Glucose, Blood 94 mg/dL (70-99); HDL Cholesterol 65 mg/dL (>39); LDL/HDL RATIO 1.5; Low Density Lipoprotein Chol 96 mg/dL (0-110); Potassium, Blood 3.9 mmol/L (3.5-5.5); Sodium, Blood 139 mmol/L (136-145); Thyroid Stimulating Hormone 0.429 uIU/mL (0.360-4.800); Total Protein, Blood 7.8 g/dL (6.4-8.2); Triglycerides 88 mg/dL (30-140); Very Low Density Lipoprot Chol 17 mg/dL (6-28)
== END ==
LOC: LAB SHORT 16:10 → LAB 16:10
PROVIDERS: Physician Assistant
DX: Z51.81 Encounter for therapeutic drug level monitoring (principal); Z79.899 Other long term (current) drug therapy
CPT/HCPCS: 80053; 80061; 82306; 84443; 85025

== ENCOUNTER 2024-09-18 09:09 | Day surgery (SDC) | payer OTHER ==
[2024-09-18] VITALS (9 sets, daily range): BP systolic 91–102; BP diastolic 58–67
[~2024-09-18] VITALS: Ht 157.5 cm; Wt 55.0 kg
[~2024-09-18 09:09] MED LIST changes: +Dexamethasone Sod Phos 10 MG/ML 1ML VIAL ONE; +Dexmedetomidine HCL 200 MCG / 2 ML ONE; -ESCI10 PO; +IBU800 MG PO; +Ketorolac Tromethamine 30mg Vial ONE; +Lidocaine HCl 2% 20 ML MDV ONE; +Lidocaine HCl 4% 5 ML SDA ONE; +Metoclopramide HCl 5MG / ML 2ML Vial ONE; +Ondansetron HCl 2 MG / ML 2ML Vial ONE; +Rocuronium Bromide 10 MG/ML 5ML Injection IV ONE; +Sugammadex Sodium 200 MG/2ML SDV (100 MG/ML) ONE; +propofoL 150 ML IV ONE
[2024-09-18] MEDS ORDERED: Acetaminophen 500 MG Tab PO SCH (09:35)
[2024-09-18] MEDS ORDERED: Lactated Ringer's 1,000 ML IV SCH (09:35)
[2024-09-18] MEDS ORDERED: Bupivacaine 0.5% HCl 5 MG/ML 30MLVIAL ONE (09:51)
[2024-09-18] MEDS ORDERED: HYDROmorphone HCl/Pf 1MG SYR ONE (10:09)
[2024-09-18] MEDS ORDERED: DiphenhydrAMINE HCl 50 MG/ML 1ML Vial ONE (10:10)
[2024-09-18] MEDS ORDERED: Heparin Sodium,Porcine 5,000 UNIT/0.5 ML SDV SC ONE (10:20)
--- NOTE | 2024-09-18 10:40 | NUR ---
0920 History, Chart, Medications and Allergies reviewed before start of procedure.Lungs clear T/O to Auscultation. Patient confirms NPO status and agrees with scheduled surgery. Pre-Op teaching done. Pt verbalizes understanding. 1030 AMBULATE TO BR STEADY ON FEET, VOID PRIOR TO SURGERY
[2024-09-18] MEDS ORDERED: FentaNYL Citrate 50 MCG/ML 2 ML Injection ONE (11:58)
[2024-09-18] MEDS ORDERED: OxyCODONE 5 mg/Acetamin 325 mg TABLET PO PRN (12:35)
--- NOTE | 2024-09-18 13:41 | NUR ---
Patient up to Ambulate independently. Gait steady. Discharge instructions reviewed with patient. Patient verbalizes understanding. Copy given to patient to take home. Discharged via wheelchair to private car for ride home. PT'S BASELINE BP 90/60'S. PT ENCOURAGED TO GET UP SLOWLY TO AVOID DIZZINESS
== END 2024-09-18 13:45 | disposition home or self-care (01) ==
LOC: ORSCMMR 09:09 → ORD 10:00 → ORSCMMR 13:45
PROVIDERS: Surgery
PROC: 0YUA4JZ Supplement Bilateral Inguinal Region with Synthetic Substitute, Percutaneous Endoscopic Approach (ICD-10-PCS; principal; 2024-09-18 10:00)
PROC: 8E0W4CZ Robotic Assisted Procedure of Trunk Region, Percutaneous Endoscopic Approach (ICD-10-PCS; principal; 2024-09-18 10:00)
DX: K40.20 Bilateral inguinal hernia, without obstruction or gangrene, not specified as recurrent (principal); D68.51 Activated protein C resistance; Z87.891 Personal history of nicotine dependence; F32.A Depression, unspecified; Z79.899 Other long term (current) drug therapy
CPT/HCPCS: A9270; C1781; J1100; J1171; J1200; J1644; J1885; J2003; J2405; J2704; J2765; J3010; J7120

== ENCOUNTER 2025-02-24 02:33 | Emergency (ER) | payer OTHER ==
[~2025-02-24] VITALS: Ht 160 cm; Wt 52.2 kg
[~2025-02-24 02:33] MED LIST changes: -Dexamethasone Sod Phos 10 MG/ML 1ML VIAL ONE; -Dexmedetomidine HCL 200 MCG / 2 ML ONE; -Ketorolac Tromethamine 30mg Vial ONE; -Lidocaine HCl 2% 20 ML MDV ONE; -Lidocaine HCl 4% 5 ML SDA ONE; -Metoclopramide HCl 5MG / ML 2ML Vial ONE; +Norethindrone0.35 MG PO; +OXAYDO5 M1 PO; -Ondansetron HCl 2 MG / ML 2ML Vial ONE; -Rocuronium Bromide 10 MG/ML 5ML Injection IV ONE; -Sugammadex Sodium 200 MG/2ML SDV (100 MG/ML) ONE; +XARELTO20 MG PO; -propofoL 150 ML IV ONE
[2025-02-24] MEDS ORDERED: Ondansetron HCl 2 MG / ML 2ML Vial IV ONE (03:10)
[2025-02-24] MEDS ORDERED: HYDROmorphone HCl/Pf 1MG SYR IV ONE (03:10)
[2025-02-24 03:51] LABS: BASOPHILS ABSOLUTE AUTO 0.07 K/mm3 (0.00-0.23); BASOPHILS PERCENT AUTO 1 % (0-2); EOSINOPHILS ABSOLUTE AUTO 0.04 K/mm3 (0.00-0.68); EOSINOPHILS PERCENT AUTO 0 % (0-6); Hematocrit 37.9 % (33.0-51.0); Hemoglobin 13.1 g/dL (11.5-16.0); IMMATURE GRAN ABSOLUTE AUTO 0.05 K/mm3 (0.00-0.10); IMMATURE GRAN PERCENT AUTO 1 % (0-1); LYMPHOCYTES ABSOLUTE AUTO 1.75 K/mm3 (0.84-5.20); LYMPHOCYTES PERCENT AUTO 18 % (21-46); MONOCYTES ABSOLUTE AUTO 0.51 K/mm3 (0.16-1.47); MONOCYTES PERCENT AUTO 5 % (4-13); Mean Corpuscular HGB Conc 34.6 g/dL (31.5-36.5); Mean Corpuscular Volume 90 fL (80-100); NEUTROPHILS ABSOLUTE AUTO 7.41 K/mm3 (1.96-9.15); NEUTROPHILS PERCENT AUTO 75 % (41-73); NRBC ABSOLUTE 0.02 K/mm3 (0.00-0.02); NRBC Auto 0.2 /100 WBC (0.0-0.2); RDW Coefficient Variation 12.6 % (11.7-14.2); RDW Standard Deviation 41.6 fL (35.1-46.3)
[2025-02-24 04:00] LABS: Alanine Aminotransfer (ALT/SGP 20.0 U/L (12-78); Albumin, Blood 4.8 g/dL (3.4-5.0); Albumin/Globulin Ratio 1.3 (0.8-1.8); Anion Gap 14.0 mmol/L (3-11); Aspartate Aminotrans (AST/SGOT 22.0 U/L (12-37); Bilirubin, Total 0.6 mg/dL (0.1-1.0); Blood Urea Nitrogen 11.0 mg/dL (8-24); CO2, Blood 18.0 mmol/L (21-32); Calcium, Blood 8.9 mg/dL (8.5-10.1); Chloride, Blood 115.0 mmol/L (98-108); Creatinine, Blood 0.58 mg/dL (0.40-1.00); Globulin, Blood 3.6 g/dL (2.2-4.0); Glucose, Blood 97.0 mg/dL (70-99); Potassium, Blood 3.3 mmol/L (3.5-5.5); Sodium, Blood 144.0 mmol/L (136-145); Total Protein, Blood 8.4 g/dL (6.4-8.2)
[2025-02-24 04:27] LABS: Platelet Count 356 K/mm3 (150-400)
[2025-02-24] MEDS ORDERED: POTA10T PO (06:00)
[2025-02-24] MEDS ORDERED: ONDA4ODT MM (06:00)
[2025-02-24 06:28] VITALS: BP 88/63
== END 2025-02-24 06:20 | disposition home or self-care (01) ==
LOC: ER 02:33
PROVIDERS: Emergency Medicine
DX: R11.2 Nausea with vomiting, unspecified (principal); R19.7 Diarrhea, unspecified; E87.6 Hypokalemia; D68.51 Activated protein C resistance; Z79.01 Long term (current) use of anticoagulants; Z79.899 Other long term (current) drug therapy
CPT/HCPCS: 80053; 83690; 84703; 85025; 96361; 96374; 96375; 99284-25; J1171; J1790; J2405; J7120

== ENCOUNTER 2025-05-16 14:56 | Emergency (ER) | payer OTHER ==
[~2025-05-16] VITALS: Ht 167.6 cm; Wt 54.4 kg
[~2025-05-16 14:56] MED LIST changes: +POTA10T PO
[2025-05-16 15:17] VITALS: BP 104/67
== END 2025-05-16 16:29 | disposition home or self-care (01) ==
LOC: ER 14:56
DX: S61.012A Laceration without foreign body of left thumb without damage to nail, initial encounter (principal); W45.8XXA Other foreign body or object entering through skin, initial encounter; Z87.891 Personal history of nicotine dependence; Z79.899 Other long term (current) drug therapy; Z91.040 Latex allergy status; Z91.018 Allergy to other foods
CPT/HCPCS: 12001; 90471; 90715; 99282-25

== ENCOUNTER → 2025-05-22 | Outpatient (CLI) | payer OTHER ==
[2025-05-22 16:41] LABS: BASOPHILS ABSOLUTE AUTO 0.12 K/mm3 (0.00-0.23); BASOPHILS PERCENT AUTO 2 % (0-2); EOSINOPHILS ABSOLUTE AUTO 0.34 K/mm3 (0.00-0.68); EOSINOPHILS PERCENT AUTO 6 % (0-6); Hematocrit 36.4 % (33.0-51.0); Hemoglobin 12.2 g/dL (11.5-16.0); IMMATURE GRAN ABSOLUTE AUTO 0.01 K/mm3 (0.00-0.10); IMMATURE GRAN PERCENT AUTO 0 % (0-1); LYMPHOCYTES ABSOLUTE AUTO 2.27 K/mm3 (0.84-5.20); LYMPHOCYTES PERCENT AUTO 39 % (21-46); MONOCYTES ABSOLUTE AUTO 0.37 K/mm3 (0.16-1.47); MONOCYTES PERCENT AUTO 6 % (4-13); Mean Corpuscular HGB Conc 33.5 g/dL (31.5-36.5); Mean Corpuscular Volume 97 fL (80-100); NEUTROPHILS ABSOLUTE AUTO 2.74 K/mm3 (1.96-9.15); NEUTROPHILS PERCENT AUTO 47 % (41-73); NRBC ABSOLUTE 0.00 K/mm3 (0.00-0.02); NRBC Auto 0.0 /100 WBC (0.0-0.2); Platelet Count 327 K/mm3 (150-400); RDW Coefficient Variation 13.2 % (11.7-14.2); RDW Standard Deviation 47.1 fL (35.1-46.3)
== END | disposition home or self-care (01) ==
LOC: LAB 15:19 → LAB SHORT 15:19
PROVIDERS: Physician Assistant
DX: N92.6 Irregular menstruation, unspecified (principal)
CPT/HCPCS: 84443; 85025

== ENCOUNTER 2025-06-16 17:28 | Emergency (ER) | payer OTHER ==
[~2025-06-16] VITALS: Ht 157.5 cm; Wt 54.4 kg
[2025-06-16 18:17] LABS: BASOPHILS ABSOLUTE AUTO 0.04 K/mm3 (0.00-0.23); BASOPHILS PERCENT AUTO 0 % (0-2); EOSINOPHILS ABSOLUTE AUTO 0.00 K/mm3 (0.00-0.68); EOSINOPHILS PERCENT AUTO 0 % (0-6); Hematocrit 39.9 % (33.0-51.0); Hemoglobin 14.2 g/dL (11.5-16.0); IMMATURE GRAN ABSOLUTE AUTO 0.03 K/mm3 (0.00-0.10); IMMATURE GRAN PERCENT AUTO 0 % (0-1); LYMPHOCYTES ABSOLUTE AUTO 1.59 K/mm3 (0.84-5.20); LYMPHOCYTES PERCENT AUTO 13 % (21-46); MONOCYTES ABSOLUTE AUTO 0.91 K/mm3 (0.16-1.47); MONOCYTES PERCENT AUTO 8 % (4-13); Mean Corpuscular HGB Conc 35.6 g/dL (31.5-36.5); Mean Corpuscular Volume 90 fL (80-100); NEUTROPHILS ABSOLUTE AUTO 9.37 K/mm3 (1.96-9.15); NEUTROPHILS PERCENT AUTO 79 % (41-73); NRBC ABSOLUTE 0.00 K/mm3 (0.00-0.02); NRBC Auto 0.0 /100 WBC (0.0-0.2); Platelet Count 398 K/mm3 (150-400); RDW Coefficient Variation 12.5 % (11.7-14.2); RDW Standard Deviation 41.2 fL (35.1-46.3)
[2025-06-16 18:31] LABS: Alanine Aminotransfer (ALT/SGP 24.0 U/L (12-78); Albumin, Blood 5.5 g/dL (3.4-5.0); Albumin/Globulin Ratio 1.4 (0.8-1.8); Anion Gap 15.0 mmol/L (3-11); Aspartate Aminotrans (AST/SGOT 23.0 U/L (12-37); Bilirubin, Total 2.0 mg/dL (0.1-1.0); Blood Urea Nitrogen 21.0 mg/dL (8-24); CO2, Blood 22.0 mmol/L (21-32); Calcium, Blood 9.4 mg/dL (8.5-10.1); Chloride, Blood 99.0 mmol/L (98-108); Creatinine, Blood 0.75 mg/dL (0.40-1.00); Globulin, Blood 3.8 g/dL (2.2-4.0); Glucose, Blood 104.0 mg/dL (70-99); Potassium, Blood 3.5 mmol/L (3.5-5.5); Sodium, Blood 132.0 mmol/L (136-145); Total Protein, Blood 9.3 g/dL (6.4-8.2)
[2025-06-16 18:34] LABS: Source, Urine Clean Catch
[2025-06-16 18:37] LABS: Bilirubin, Urine Neg (Neg); Color, Urine Yellow (P-Yellow); Glucose Qualitative, Urine Neg (Neg); Ketones, Urine 4+ (Neg); Leukocyte Esterase, Urine Neg (Neg); Protein, Urine 3+ (Neg); Specific Gravity, Urine 1.025 (1.003-1.022); Urobilinogen, Urine NORM (Normal)
[2025-06-16] MEDS ORDERED: NS 1,000 ML IV SCH ×2 (18:40→19:05)
[2025-06-16] MEDS ORDERED: Diazepam 5 MG / ML 2ML SYR IV ONE (20:15)
[2025-06-16] MEDS ORDERED: HYDROmorphone HCl/Pf 1MG SYR IV ONE (20:55)
[2025-06-16] MEDS ORDERED: DiphenhydrAMINE HCl 50 MG/ML 1ML Vial IV ONE (21:00)
[2025-06-16] MEDS ORDERED: PROMETHAZINE12.5 M1 PO (21:41)
[2025-06-16 21:45] VITALS: BP 116/74
[2025-06-21] MEDS ORDERED: LIDO700A20 TOP (15:18)
[2025-06-21] MEDS ORDERED: POTCHL20ER PO (15:18)
[2025-06-21] MEDS ORDERED: METO10 PO (15:18)
[2025-06-21] MEDS ORDERED: Pepcid20 MG PO (15:18)
== END 2025-06-16 22:01 | disposition home or self-care (01) ==
LOC: ER 17:28
PROVIDERS: Student in an Organized Health Care Education/Training Program
DX: R07.9 Chest pain, unspecified (principal); R10.9 Unspecified abdominal pain; R11.2 Nausea with vomiting, unspecified; Z91.040 Latex allergy status; Z91.018 Allergy to other foods; Z79.01 Long term (current) use of anticoagulants; Z79.899 Other long term (current) drug therapy
CPT/HCPCS: 71045; 74177; 80053; 81001; 83690; 84484; 85025; 87086; 93005; 93010; 96361; 96374-59; 96375; 99284-25; J1171; J1200; J3360; J7030; Q9967

== ENCOUNTER 2025-06-17 13:05 | Emergency (ER) | payer OTHER ==
[~2025-06-17] VITALS: Ht 157.5 cm; Wt 49.9 kg
[~2025-06-17 13:05] MED LIST changes: +PROMETHAZINE12.5 M1 PO
[2025-06-17 15:14] VITALS: BP 99/67
[2025-06-21] MEDS ORDERED: METO10 PO (15:18)
[2025-06-21] MEDS ORDERED: POTCHL20ER PO (15:18)
[2025-06-21] MEDS ORDERED: LIDO700A20 TOP (15:18)
[2025-06-21] MEDS ORDERED: Pepcid20 MG PO (15:18)
== END 2025-06-17 15:16 | disposition home or self-care (01) ==
LOC: ER 13:05
DX: R11.15 Cyclical vomiting syndrome unrelated to migraine (principal); D68.51 Activated protein C resistance; Z79.01 Long term (current) use of anticoagulants; Z79.899 Other long term (current) drug therapy
CPT/HCPCS: 96374; 99284-25; J1790

== ENCOUNTER 2025-06-18 15:20 | Emergency (ER) | payer OTHER ==
[~2025-06-18] VITALS: Ht 160 cm; Wt 49.9 kg
[2025-06-18 15:43] VITALS: BP 141/99
[2025-06-18 16:07] LABS: BASOPHILS ABSOLUTE AUTO 0.10 K/mm3 (0.00-0.23); BASOPHILS PERCENT AUTO 1 % (0-2); EOSINOPHILS ABSOLUTE AUTO 0.03 K/mm3 (0.00-0.68); EOSINOPHILS PERCENT AUTO 0 % (0-6); Hematocrit 37.1 % (33.0-51.0); Hemoglobin 13.3 g/dL (11.5-16.0); IMMATURE GRAN ABSOLUTE AUTO 0.02 K/mm3 (0.00-0.10); IMMATURE GRAN PERCENT AUTO 0 % (0-1); LYMPHOCYTES ABSOLUTE AUTO 2.34 K/mm3 (0.84-5.20); LYMPHOCYTES PERCENT AUTO 29 % (21-46); MONOCYTES ABSOLUTE AUTO 0.97 K/mm3 (0.16-1.47); MONOCYTES PERCENT AUTO 12 % (4-13); Mean Corpuscular HGB Conc 35.8 g/dL (31.5-36.5); Mean Corpuscular Volume 89 fL (80-100); NEUTROPHILS ABSOLUTE AUTO 4.56 K/mm3 (1.96-9.15); NEUTROPHILS PERCENT AUTO 57 % (41-73); NRBC ABSOLUTE 0.00 K/mm3 (0.00-0.02); NRBC Auto 0.0 /100 WBC (0.0-0.2); Platelet Count 332 K/mm3 (150-400); RDW Coefficient Variation 12.0 % (11.7-14.2); RDW Standard Deviation 39.5 fL (35.1-46.3)
[2025-06-18 16:29] LABS: Alanine Aminotransfer (ALT/SGP 24.0 U/L (12-78); Albumin, Blood 4.5 g/dL (3.4-5.0); Albumin/Globulin Ratio 1.3 (0.8-1.8); Anion Gap 14.0 mmol/L (3-11); Aspartate Aminotrans (AST/SGOT 24.0 U/L (12-37); Bilirubin, Total 2.0 mg/dL (0.1-1.0); Blood Urea Nitrogen 13.0 mg/dL (8-24); CO2, Blood 24.0 mmol/L (21-32); Calcium, Blood 8.7 mg/dL (8.5-10.1); Chloride, Blood 100.0 mmol/L (98-108); Creatinine, Blood 0.74 mg/dL (0.40-1.00); Globulin, Blood 3.4 g/dL (2.2-4.0); Glucose, Blood 98.0 mg/dL (70-99); Magnesium, Blood 2.1 mg/dL (1.6-2.4); Phosphorus, Blood 1.4 mg/dL (2.5-4.9); Potassium, Blood 2.5 mmol/L (3.5-5.5); Sodium, Blood 135.0 mmol/L (136-145); Total Protein, Blood 7.9 g/dL (6.4-8.2)
[2025-06-21] MEDS ORDERED: Pepcid20 MG PO (15:18)
[2025-06-21] MEDS ORDERED: POTCHL20ER PO (15:18)
[2025-06-21] MEDS ORDERED: METO10 PO (15:18)
[2025-06-21] MEDS ORDERED: LIDO700A20 TOP (15:18)
== END 2025-06-18 17:04 | disposition left against medical advice (07) ==
LOC: ER 15:20
PROVIDERS: Student in an Organized Health Care Education/Training Program
DX: R11.15 Cyclical vomiting syndrome unrelated to migraine (principal); E87.6 Hypokalemia; E83.39 Other disorders of phosphorus metabolism; E80.6 Other disorders of bilirubin metabolism; Z79.899 Other long term (current) drug therapy; Z91.040 Latex allergy status; Z91.018 Allergy to other foods
CPT/HCPCS: 80053; 83690; 83735; 84100; 84484; 85025; 93005; 93010; 96374; 99284-25; J1790